=== PATIENT | female | born 1950 | race Caucasian/White ===

== ENCOUNTER 2020-12-13 12:44 | Emergency (ER) | payer MEDICARE, OTHER, SELFPAY ==
[2020-12-13 12:45] VITALS: BP 165/90; PULSE 115; RESP 16; TEMP 35.8; O2SAT 92; BMI 32.5
--- NOTE | 2020-12-13 13:08 | EDS_ITS ---
HPI History of Present Illness Chief Complaint: Lower Extremity Injury Detail of Chief Complaint: Patient presents with injury to her right second toe Informant: patient Narrative Narrative: Patient presents to the emergency department with an injury to her right second toe that occurred on November 21. Patient states that she got the toe caught in the cord of a purse and twisted the toe. Patient did not seek medical attention because she did not think there was much we could do for toes but she continues to have pain and swelling. Patient also has a history of peripheral artery disease and was not sure if continued pain was related to that. [facility] Medical History (Updated 12/13/20 @ 14:[address] Rodney Collins, DO) Hypertension Peripheral arterial disease Home Medications meclizine 25 mg PO 4X/DAY PRN PRN #20 tab 02/07/16 [Rx Last Taken Unknown] trazodone 200 mg PO QHS PRN 02/07/16 [History Last Taken Unknown] albuterol sulfate 2 puff INHALATION Q4H PRN PRN 12/13/20 [History Last Taken Unknown] cilostazol 100 mg PO BID 12/13/20 [History Last Taken Unknown] clopidogrel 75 mg PO DAILY 12/13/20 [History Last Taken Unknown] hydrocodone-acetaminophen 1 tab PO Q4H PRN PRN 2 Days #10 tablet 12/13/20 [Rx Last Taken Unknown] metoprolol tartrate 25 mg PO BID 12/13/20 [History Last Taken Unknown] Allergy/AdvReac Type Severity Reaction Status Date / Time cephalexin [From Keflex] Allergy Rash Verified 12/13/20 12:44 ciprofloxacin [From Cipro] Allergy Rash Verified 12/13/20 12:44 Penicillins Allergy Rash Verified 12/13/20 12:44 Sulfa (Sulfonamide Allergy Rash Verified 12/13/20 12:44 Antibiotics) Social History Smoking Status: Never smoker [facility] ED Constitutional Constitutional ED: Reports systems reviewed and no addt'l complaints, except as documented; Denies body ache(s), change in weight or chills Eyes Eyes: Denies acute decrease in peripheral vision, change in vision, double vision or loss of vision ENT ENT ED: Reports none; Denies ear pain, lip swelling, loss taste/smell, neck pain, otalgia or sore throat Cardiovascular Cardiovascular: Reports none; Denies abdominal pain, chest pain with activity, leg edema, lightheadedness, palpitations, rapid heart rate or syncope Respiratory/Chest Respiratory/Chest: Reports none; Denies change in mental status, dry cough, dyspnea, hemoptysis, shortness of breath at rest or shortness of breath with exertion Gastrointestinal Gastrointestinal: Reports none; Denies abdominal pain, change in stool character, diarrhea, hematemesis, hematochezia, melena, rectal bleeding or vomiting Genitourinary Genitourinary ED: Reports none; Denies abdominal discomfort, anuria, dysuria, genital pain or polyuria Musculoskeletal Musculoskeletal: Reports none and other Details: Right second toe pain ; Denies arthralgias, back pain, difficulty walking, extremity pain, muscle weakness or myalgias Integumentary Reports none; Denies abscess or rash Neurologic Neurologic: Reports none; Denies abnormal gait, confusion, focal weakness, frequent falls, headache(s), loss of vision, numbness, paresthesias, radicular pain, vertigo or weakness Psychiatric Psychiatric: Reports systems reviewed and no addt'l complaints, except as documented and none; Denies behavioral changes, confusion, difficulty concentrating, hallucinations, suicidal ideation, tactile hallucinations or visual hallucinations Endocrine Endocrinology: Denies none, cold intolerance, excessive sweating, fatigue or heat intolerance Hematologic/Lymphatic Hematologic/Lymphatic: Reports none; Denies anemia, easy bleeding or easy bruising Allergic/Immunologic Allergic/Immunologic ED: Denies as per HPI, none, lip swelling, mouth swelling, throat swelling, tongue swelling or hives EXAM Physical Exam Const Vital Signs: 12/13/20 12:45 Temperature 96.5 F L Temperature Source Temporal Pulse Rate 115 H Respiratory Rate 16 Blood Pressure 165/90 H Blood Pressure Mean 115 Pulse Ox 92 Oxygen Delivery Method Room Air Positive well nourished and well developed General Appearance ED: well developed and NAD HEENT Reports TM's clear and moist mucous membranes normocephalic and atraumatic; Negative for trauma or tenderness Tympanic Membrane ED: Yes TM's clear Eyes PERRL and EOMs intact bilaterally General Eye ED: Negative for pale conjunctiva or scleral icterus Neck no lymphadenopathy, supple and no JVD General: Negative for tenderness Chest Wall inspection of chest normal and palpation of chest normal Chest: Negative for tenderness Resp normal respiratory effort and clear to auscultation bilaterally Effort and Inspection: Negative for respiratory distress or pain with movement Auscultation: Negative for rhonchi, wheezes or diminished lung sounds Cardio regular rate, regular rhythm, S1 normal heart sound, S2 normal heart sound and no murmurs Peripheral Pulses: pulses 2+ throughout GI normal to inspection, nondistended, normoactive bowel sounds, soft to palpation, non-tender, non-distended and no masses Back/Spine no CVA tenderness and no thoracic nor lumbar tenderness Extremity normal to inspection Extremity Narrative: Valuation of the second toe reveals soft tissue swelling over the proximal phalanx with tenderness to palpation. No significant rotational deformity noted. Patient has normal dorsal pedal and posterior tibial pulses. Normal cap refill. General Extremety ED: Negative for edema General Extremity: Negative for edema Neuro oriented x3, CN's II-XII intact bilaterally, no sensory deficits noted and gait normal Sensorium / Orientation: awake, alert, oriented to person, oriented to place and oriented to time Motor Exam: strength 5/5 throughout and strength abnormal Psych mental status grossly normal Skin no rashes or lesions noted and no wounds MDM MDM MDM Narrative Medical decision making narrative: Patient has a fracture of the proximal phalanx of the second toe and she will have the toes brendan taped and will be given a postop shoe. Patient will be referred to podiatry for follow-up within the next 5 to 7 days. Radiography Diagnostic Testing: Radiology Impression Foot X-Ray 12/13/20 13:20 IMPRESSION: Fracture of the second proximal phalanx. Posterior calcaneal enthesophyte. Electronically Signed: Aftab Madera MD at 13:51 EDT Tel , Service support , Three-view x-rays of the right foot obtained showed a comminuted fracture of the head of the proximal phalanx of the second toe as interpreted by myself. Official radiology report pending. Discharge Plan Triage Chief Complaint: Lower Extremity Injury ED Provider: Rodney Collins Dx/Rx/DC Orders Clinical Impression: Fracture of toe Instructions: ED Fracture, Toe, Closed Prescriptions: New hydrocodone-acetaminophen [hydrocodone-acetaminophen] 1 TABLET tablet 1 tab PO Q4H PRN PRN (Reason: Pain) 2 Days Qty: 10 RF: 0 No Action trazodone 100 MG tablet 200 mg PO QHS PRN (Reason: Sleep) RF: 0 meclizine 25 MG tablet 25 mg PO 4X/DAY PRN PRN (Reason: Dizziness) Qty: 20 RF: 0 cilostazol 100 mg tablet 100 mg PO BID RF: 0 clopidogrel 75 mg tablet 75 mg PO DAILY RF: 0 albuterol sulfate 90 mcg/actuation HFA aerosol inhaler 2 puff INHALATION Q4H PRN PRN (Reason: Shortness Of Breath Or Wheezing) RF: 0 metoprolol tartrate 25 mg tablet 25 mg PO BID RF: 0 Primary Care Provider: Domo Adhikari Referrals: Domo Adhikari DO [Primary Care Provider] - Dave Winston DPM [STAFF PHYSICIAN] - 5-7 Days Disposition Disposition: Home, Self Care
--- NOTE | 2020-12-13 13:20 | RAD_ITS ---
STUDY: X-RAY - RIGHT FOOT CLINICAL: Right great toe pain, toe injury 11/21/2020. TECHNIQUE: 3 view(s) of the foot. COMPARISON: None. FINDINGS: There is a posterior calcaneal enthesophyte. Otherwise, unremarkable talus, calcaneus, and tarsal bones. Normal visualized subtalar, talonavicular, calcaneocuboid, tarsal and tarsometatarsal articulations. Normal metatarsi. Normal metatarsophalangeal joint of the great toe. Normal tibial and fibular sesamoid bones. Normal interphalangeal joint of the great toe. Normal phalanges of the great toe. Normal second through fifth metatarsophalangeal joints. There is a mildly displaced mildly comminuted intra-articular fracture of the head of the second proximal phalanx. The soft tissue structures are unremarkable. RAD/Foot min 3 Views IMPRESSION: Fracture of the second proximal phalanx. Posterior calcaneal enthesophyte. Electronically Signed: Aftab Madera MD at 13:51 EDT Tel , Service support ,
== END 2020-12-13 14:23 | disposition home or self-care (01) ==
PROVIDERS: Emergency Provider Emergency Medicine; PCP Family Medicine
DX: S92.911A Unspecified fracture of right toe(s), initial encounter for closed fracture (principal); I10 Essential (primary) hypertension; X58.XXXA Exposure to other specified factors, initial encounter; Z79.899 Other long term (current) drug therapy
CPT/HCPCS: 73630; 99283

== ENCOUNTER 2021-02-27 10:02 | Emergency (ER) | payer MEDICARE, OTHER, SELFPAY ==
[2021-02-27 10:04] VITALS: BP 130/74; PULSE 18; RESP 18; TEMP 37; O2SAT 93; BMI 32.2
--- NOTE | 2021-02-27 10:13 | ED.RN ---
oral cavity assessed. no swelling noted to the uvula or posterior pharyngeal wall. oxygen noted at 93. patient in no respiratory distress.
--- NOTE | 2021-02-27 11:38 | EX.ED.DYSGE1 ---
HPI History of Present Illness Chief Complaint: Edema Narrative Narrative: Patient presenting with right-sided jaw pain. She states that her face was swollen before she got here however this is resolved. Patient states she called her primary care physician who told her to come to the emergency room. Patient states she has been fatigued but denies chills or fevers. Patient states that she is having difficulty swallowing at home due to the pain but now is not having the symptoms. Patient complains of headache intermittently for about a week. She denies neck pain. She denies a cough. [facility] Medical History Hypertension Peripheral arterial disease Home Medications trazodone 300 mg PO QHS PRN 02/07/16 [History Last Taken Unknown] cilostazol 100 mg PO BID 12/13/20 [History Last Taken Unknown] metoprolol tartrate 25 mg PO BID 12/13/20 [History Last Taken Unknown] clarithromycin 500 mg PO Q12H 7 Days #14 tab 02/27/21 [Rx Last Taken Unknown] Allergy/AdvReac Type Severity Reaction Status Date / Time cephalexin [From Keflex] Allergy Rash Verified 02/27/21 10:07 ciprofloxacin [From Cipro] Allergy Rash Verified 02/27/21 10:07 Penicillins Allergy Rash Verified 02/27/21 10:07 Sulfa (Sulfonamide Allergy Rash Verified 02/27/21 10:07 Antibiotics) Surgical History History of carpal tunnel release History of hysterectomy History of partial colectomy Social History Smoking Status: Never smoker ROS ROS ED Constitutional Constitutional ED: Denies chills or fever(s) Eyes Eyes: Denies blurry vision or diplopia ENT ENT ED: Reports sore throat; Denies rhinorrhea Cardiovascular Cardiovascular: Denies chest pain or palpitations Respiratory/Chest Respiratory/Chest: Denies cough or dyspnea Gastrointestinal Gastrointestinal: Denies abdominal pain, constipation, diarrhea, nausea or vomiting Genitourinary Genitourinary ED: Denies dysuria or hematuria Musculoskeletal Musculoskeletal: Denies arthralgias or myalgias Integumentary Denies Abrasions or rash Neurologic Neurologic: Reports headache(s); Denies paresthesias EXAM Physical Exam Const Vital Signs: 02/27/21 10:04 02/27/21 11:10 Temperature 98.6 F Temperature Source Temporal Pulse Rate 18 L Respiratory Rate 18 Respiratory Effort Normal Respiratory Pattern Normal Blood Pressure 130/74 H Blood Pressure Mean 92 Pulse Ox 93 Oxygen Delivery Method Room Air Positive well nourished General Appearance ED: NAD HEENT Reports moist mucous membranes HEENT Narrative: I do not appreciate any facial swelling on the right side. Oropharynx is patent without stridor. Tongue is normal. No sublingual edema. trauma Eyes PERRL and EOMs intact bilaterally Neck no lymphadenopathy and supple Resp normal respiratory effort and clear to auscultation bilaterally Cardio regular rate and regular rhythm Neuro oriented x3 and CN's II-XII intact bilaterally Sensorium / Orientation: alert Psych mental status grossly normal Skin no rashes or lesions noted MDM MDM MDM Narrative Medical decision making narrative: Patient's exam is normal. I do not appreciate any facial swelling. Her HEENT exam is otherwise normal. She states to me that her ears were hurting in her bilateral TMs are normal. Oropharynx is patent without stridor, erythema, exudates. Where she is pointing to an area of pain is where her parotid gland is is possible this could have been swollen before she got here and have resolved. Patient states that she normally would get an antibiotic for this. After discussion she states she would normally take Biaxin. She has antibiotic allergies to sulfa, penicillin, Cipro, Keflex. I counseled her that I did not feel she needed antibiotics however she was persistent. I did give her a [id number] prescription that she can use if he has any worsening symptoms. Impression: 1. Right jaw Pain Discharge Plan Triage Chief Complaint: Edema ED Provider: Matt Pedroza Dx/Rx/DC Orders Instructions: ED Pharyngitis, Viral Prescriptions: New clarithromycin 500 mg tablet 500 mg PO Q12H 7 Days Qty: 14 RF: 0 No Action trazodone 100 MG tablet 300 mg PO QHS PRN (Reason: Sleep) RF: 0 cilostazol 100 mg tablet 100 mg PO BID RF: 0 metoprolol tartrate 25 mg tablet 25 mg PO BID RF: 0 Primary Care Provider: Domo Adhikari Referrals: Domo Adhikari DO [Primary Care Provider] - Baldemar Velasco MD [STAFF PHYSICIAN] - As Needed Disposition Disposition: Home, Self Care Discharge Date/Time: 02/27/21 11:41
[2021-02-27 11:40] VITALS: RESP 15
== END 2021-02-27 11:41 | disposition home or self-care (01) ==
LOC: ED 11:19
PROVIDERS: Emergency Provider Student in an Organized Health Care Education/Training Program; PCP Family Medicine
DX: R68.84 Jaw pain (principal); J02.8 Acute pharyngitis due to other specified organisms; I10 Essential (primary) hypertension; I73.9 Peripheral vascular disease, unspecified; Z79.899 Other long term (current) drug therapy
CPT/HCPCS: 99282

== ENCOUNTER 2021-06-19 15:45 | Outpatient (CLI) | payer MEDICARE, OTHER, SELFPAY | END 2021-06-19 23:59 | disposition short-term general hospital (02) | LOC: LABSPEC 15:46 | PROVIDERS: PCP Family Medicine; Referring Provider Physician Assistant Surgical; Visit Provider Physician Assistant Surgical | DX: U07.1 COVID-19 (principal) | CPT/HCPCS: 87635; U0003; U0005 ==

== ENCOUNTER 2021-06-27 10:26 | Emergency (ER) | payer MEDICARE, OTHER, SELFPAY ==
[2021-06-27] VITALS (8 sets, daily range): BP systolic 100–123; BP diastolic 71–86; PULSE 72–111; RESP 14–22; TEMP 36.3–37.4; O2SAT 88–96; BMI 25.0
--- NOTE | 2021-06-27 10:32 | EKG12_ITS ---
Test Reason : SOB Blood Pressure : / mmHG Vent. Rate : 106 BPM Atrial Rate : 106 BPM P-R Int : 128 ms QRS Dur : 092 ms QT Int : 350 ms P-R-T Axes : 038 -05 056 degrees QTc Int : 464 ms Sinus tachycardia Low voltage QRS Borderline ECG Confirmed by GHASSAN SANTIAGO, REGINA ([id number]), videotape editor ALEJANDRINA FIORE ([id number]) on 06/28/2021 1:38:32 PM Referred By: PRO Confirmed By:RACHANA FERRELL MD
--- NOTE | 2021-06-27 11:18 | RAD_ITS ---
STUDY: X-RAY CHEST REASON FOR EXAM: Female, 70 years old. covid TECHNIQUE: AP COMPARISON: None. FINDINGS: EKG leads project over the chest. Coarsened interstitial lung markings but no airspace consolidation. There is no demonstrated pleural abnormality. Normal size heart. Sternal wires and mediastinal surgical clips compatible with prior CABG. Normal visualized pulmonary arteries. Normal visualized aortic arch and descending thoracic aorta. Normal visualized thoracic spine. Normal visualized ribs, clavicles, and shoulders. There is no demonstrated abnormality of the visualized soft tissue structures of the upper abdomen. RAD/Chest 1 View (Portable) IMPRESSION: No airspace consolidation or pleural effusion. Electronically Signed: Alexander Zuleta MD ([place]) at 11:30 EST , Service support ,
[2021-06-27 11:21] LABS: Absolute Lymphocyte Count 1.22 X10^3/uL (0.83-4.51); Absolute Neutrophil Count 2.2 X10^3/uL (2.0-7.7); Basophil# 0.02 X10^3/uL; Basophil% 0.5 % (0-1); Eosinophil# 0.01 X10^3/uL; Eosinophils% 0.3 % (0-5); Hematocrit 46.9 % (37-47); Hemoglobin 16.1 g/dL (12.0-15.0); Lymphocyte # 1.22 X10^3/ul (0.83-4.51); Lymphocyte % 31.8 % (19-41); Mean Corp Hgb Conc 34.3 g/dL (32-36); Mean Corpuscular Hgb 30.9 pg (27.0-32.0); Mean Platelet Vol. 9.1 fl (6.2-12.0); Monocyte# 0.37 X10^3/uL; Monocyte% 9.6 % (0-10); NRBC Flagged by Analyzer 0 % (0-5); Neutrophil # 2.18 X10^3/uL (2.7-7.7); Neutrophil % 56.8 % (47-70); POSITIVE COUNT YES; POSITIVE MORPHOLOGY YES; Platelet Count 228 K/mm3 (150-450); RBC Distribution Width CV 12.8 % (11.6-14.6); RBC Distribution Width SD 42.1 fl (35.1-43.9); Red Blood Count 5.21 M/mm3 (4.2-5.4); White Blood Count 3.8 K/mm3 (4.4-11.0)
[2021-06-27 11:31] LABS: Anion Gap 11 (5-15); BUN 21 mg/dL (7-18); BUN/Creat Ratio 16.8 RATIO (10-20); Calcium,Total 8.6 mg/dL (8.5-10.1); Chloride 104 mmol/L (98-107); Creatinine, Serum 1.25 mg/dL (0.55-1.02); EST Glomerular Filtration Rate 45 mL/min (>60); Est Glom Filt Rate - Afr Amer 54 mL/min (>60); Estimated Creatinine Clearance 36.61 ml/min; Glucose 143 mg/dL (74-106); Potassium 3.2 mmol/L (3.5-5.1); Sodium Level 137 mmol/L (136-145)
--- NOTE | 2021-06-27 12:38 | EX.ED.VIS.UR ---
HPI HPI - URI History of Present Illness Chief Complaint: Shortness of Breath Informant: patient Onset/Context/Timing Onset: Days Context: Gradual Onset Timing: Continuous Current Severity: Mild Maximum Severity: Mild Narrative Narrative: 70-year-old female history of prior PR, triple bypass, diabetes and hypertension. Patient was diagnosed positive for COVID on 06/16/2021. She has been generally weak. Fell complaining of right hip pain. She has had a prior hip replacement. She denied any head injury. She has had recently nausea vomiting and diarrhea and also fever but states that she thinks that is all improving. She has been coughing also. Prior similar symptoms: No Recent Illness/Hospitalization: No ROS ROS ED ROS Narrative Improving and resolving cough with nausea, vomiting diarrhea. Resolving fever and chills. COVID-positive 11 days ago. Review of Systems ROS Unobtainable: Denies due to encephalopathy Constitutional Constitutional ED: Reports chills, fever(s) and subjective Eyes Eyes: Denies change in vision ENT ENT ED: Denies ear pain or rhinorrhea Cardiovascular Cardiovascular: Denies chest pain Respiratory/Chest Respiratory/Chest: Reports cough and dyspnea Gastrointestinal Gastrointestinal: Reports diarrhea, nausea and vomiting; Denies abdominal pain or constipation Genitourinary Genitourinary ED: Denies dysuria Musculoskeletal Musculoskeletal: Reports myalgias Integumentary Denies rash Neurologic Neurologic: Denies headache(s) Psychiatric Psychiatric: Denies depression Endocrine Endocrinology: Denies polyuria Hematologic/Lymphatic Hematologic/Lymphatic: Denies easy bruising Allergic/Immunologic Allergic/Immunologic ED: Denies urticaria [facility] Medical History Hypertension Peripheral arterial disease Home Medications trazodone 300 mg PO QHS PRN 02/07/16 [History Last Taken Unknown] cilostazol 100 mg PO BID 12/13/20 [History Last Taken Unknown] metoprolol tartrate 25 mg PO BID 12/13/20 [History Last Taken Unknown] clarithromycin 500 mg PO Q12H 7 Days #14 tab 02/27/21 [Rx Last Taken Unknown] dexamethasone [Decadron] 6 mg PO DAILY 7 Days #7 tab 06/27/21 [Rx Last Taken Unknown] Allergy/AdvReac Type Severity Reaction Status Date / Time cephalexin [From Keflex] Allergy Rash Verified 06/27/21 10:27 ciprofloxacin [From Cipro] Allergy Rash Verified 06/27/21 10:27 Penicillins Allergy Rash Verified 06/27/21 10:27 Sulfa (Sulfonamide Allergy Rash Verified 06/27/21 10:27 Antibiotics) Surgical History History of carpal tunnel release History of hysterectomy History of partial colectomy Social History Smoking Status: Never smoker EXAM Physical Exam Narrative Exam Narrative: 30-year-old female. Vital signs are stable except for pulse ox of 88% on room air consistent with hypoxia. On 4 L of oxygen she is 93%. H EENT exam unremarkable atraumatic. Neck nontender. Trachea midline. Lungs clear to auscultation bilaterally. Heart regular rhythm rate about 95 no murmur. Chest nontender. Abdomen soft nontender. Moving all 4 extremities. Mild right hip tenderness. No shortening or rotation. Flexion extension intact. Dorsi plantar flexion intact. 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 Back nontender. Neurologically she is awake and alert with no focal motor deficits. There is no shortening or rotation of either hip. Const Vital Signs: 06/27/21 10:27 06/27/21 10:53 06/27/21 11:28 Temperature 98.6 F 98.9 F Temperature Source Temporal Temporal Pulse Rate 111 H 97 97 Respiratory Rate 22 H 18 18 Respiratory Effort Short of Breath Respiratory Depth Shallow Respiratory Pattern Normal Blood Pressure 120/86 H 123/79 H 100/72 Blood Pressure Mean 97 93 81 Pulse Ox 88 94 89 Oxygen Delivery Method Room Air Nasal Cannula Nasal Cannula Oxygen Flow Rate (L/min) 2 2 06/27/21 12:21 06/27/21 13:00 06/27/21 14:11 Temperature 98.9 F 98.4 F 99.4 F H Temperature Source Temporal Temporal Temporal Pulse Rate 91 99 98 Respiratory Rate 18 18 14 Respiratory Effort Respiratory Depth Respiratory Pattern Blood Pressure 112/71 112/79 108/86 H Blood Pressure Mean 84 90 93 Pulse Ox 93 96 93 Oxygen Delivery Method Nasal Cannula Nasal Cannula Nasal Cannula Oxygen Flow Rate (L/min) 4 4 4 06/27/21 15:05 Temperature 98.9 F Temperature Source Temporal Pulse Rate 72 Respiratory Rate 16 Respiratory Effort Respiratory Depth Respiratory Pattern Blood Pressure 114/72 Blood Pressure Mean 86 Pulse Ox 93 Oxygen Delivery Method Nasal Cannula Oxygen Flow Rate (L/min) 4 Positive well nourished and well developed; Negative for obese, cachectic or contractures General Appearance ED: well developed and NAD; Negative for cachectic, contractures, cyanotic, diaphoretic or pallor Nutritional Appearance: Negative for cachectic or obese HEENT Reports moist mucous membranes normocephalic; Negative for atraumatic External Ear: external ears normal Eyes PERRL and EOMs intact bilaterally General Eye ED: Negative for pale conjunctiva or scleral icterus Neck no lymphadenopathy, supple, no meningeal signs and no JVD General: Negative for anterior neck swelling or lymphadenopathy Resp normal respiratory effort and clear to auscultation bilaterally Auscultation: Negative for rales, rhonchi or wheezes Cardio S1 normal heart sound, S2 normal heart sound and no murmurs Rate: regular rate Rhythm: regular rhythm GI non-tender, non-distended and no masses Inspection: Negative for abdominal distention Auscultation: normoactive bowel sounds Palpation: soft; Negative for tender or guarding Back/Spine no CVA tenderness and normal ROM General Back: Negative for CVA tenderness Cervical Spine: Negative for cervical spine tenderness Thoracic Spine / Upper Back: Negative for thoracic spinal tenderness Extremity normal to inspection and full ROM Extremity Narrative: Mild tenderness right hip. No shortening or rotation. General Extremety ED: Yes tenderness; Negative for cyanosis General Extremity: Negative for cyanosis Neuro oriented x3 Sensorium / Orientation: alert, oriented to person, oriented to place and oriented to time; Negative for orientation impaired, lethargic or stuporous Motor Exam: strength 5/5 throughout; Negative for general weakness Psych mental status grossly normal Attitude: No agitated Mood & Affect: Negative for depressed or tearful Skin General Skin Exam: Negative for jaundice or pallor Lesions: no lesions Rashes: no rashes MDM MDM MDM Narrative Medical decision making narrative: 70-year-old female who is COVID-positive 11 days ago. Symptoms are improving but she had weakness and a fall and also complaining of right hip pain. She has some mild tenderness of the hip there is no gross deformity. X-rays and screening labs will be obtained. Repeat exam patient is doing well at 3:37 PM. We went over all of her test. She will be discharged home. Patient is doing well. Says she does not feel short of breath. She has some underlying lung disease. She may be chronically hypoxic. She did not want home O2. She will be started on Decadron daily. Patient and follow-up with her primary care physician. Return if worse. Lab Data Attestation: I reviewed the patient's lab results. Lab results narrative: CBC shows a white count 3.8. Hemoglobin 16. Electrolytes show potassium 3.2 gap 11 BUN 21 creatinine 1.25 glucose 143. Chest x-ray shows chronic changes cannot rule out a left pleural effusion. Interpreted by myself and radiologist. D-dimer elevated but the CTA of the chest showed no PE as read by the radiologist and reviewed by me. Findings consistent with chronic underlying lung disease. Labs: Laboratory Results - last 24 hr 06/27/21 06/27/21 06/27/21 11:07 11:07 13:00 WBC 3.8 L RBC 5.21 Hgb 16.1 H Hct 46.9 MCV 90.0 MCH 30.9 MCHC 34.3 RDW Std Deviation 42.1 RDW Coeff of Pelon 12.8 Plt Count 228 MPV 9.1 Immature Gran % (Auto) 1.000 H Neut % (Auto) 56.8 Lymph % (Auto) 31.8 [place]ardo % (Auto) 9.6 Eos % (Auto) 0.3 Baso % (Auto) 0.5 Absolute Neuts (auto) 2.2 Absolute Lymphs (auto) 1.22 Nucleated RBC % 0 D-Dimer Quant (PE/DVT) Cancelled Sodium 137 Potassium 3.2 L Chloride 104 Carbon Dioxide 22.0 Anion Gap 11 BUN 21 H Creatinine 1.25 H Estim Creat Clear Calc 36.61 Est GFR (MDRD) Af Amer 54 L Est GFR (MDRD) Non-Af 45 L BUN/Creatinine Ratio 16.8 Glucose 143 H Calcium 8.6 06/27/21 13:50 WBC RBC Hgb Hct MCV MCH MCHC RDW Std Deviation RDW Coeff of Pelon Plt Count MPV Immature Gran % (Auto) Neut % (Auto) Lymph % (Auto) [place]ardo % (Auto) Eos % (Auto) Baso % (Auto) Absolute Neuts (auto) Absolute Lymphs (auto) Nucleated RBC % D-Dimer Quant (PE/DVT) 1.34 H* Sodium Potassium Chloride Carbon Dioxide Anion Gap BUN Creatinine Estim Creat Clear Calc Est GFR (MDRD) Af Amer Est GFR (MDRD) Non-Af BUN/Creatinine Ratio Glucose Calcium Radiography Diagnostic Testing: Clinical Impression(s) from Imaging Studies Chest X-Ray 06/27/21 11:18 IMPRESSION: No airspace consolidation or pleural effusion. Electronically Signed: Alexander Zuleta MD ([place]) at 11:30 EST , Service support , Hip/Pelvis X-Ray 06/27/21 12:45 IMPRESSION: Status post right total hip replacement. No fracture or dislocation. Moderate degree of osteoarthritis involving the left hip joint. Electronically Signed: August Maloney MD at 13:06 EST , Service support , Chest CTA 06/27/21 14:42 IMPRESSION: Findings suggestive of chronic interstitial fibrosis. No pulmonary infiltration is seen. Electronically Signed: August Maloney MD at 15:21 EST , Service support , Chest x-ray, portable, single view interpreted by myself and radiology shows chronic changes cannot rule out a left pleural effusion. Rhythm Strip Rhythm Strip: Sinus Tach Rate: 106 Ectopy: None EKG Initial EKG: Attestation: I personally reviewed and interpreted this EKG as follows: Interpretation: Sinus Rhythm, No Acute Injury Pattern and Sinus Tachycardia Comments: Sinus tachycardia rate of 106 no acute signs of PR or ischemia. Discharge Plan Triage Chief Complaint: Shortness of Breath ED Provider: Tyler Roberts Dx/Rx/DC Orders Clinical Impression: COVID-19, Chronic interstitial lung disease Instructions: Human Coronaviruses Prescriptions: New dexamethasone [Decadron] 6 mg tablet 6 mg PO DAILY 7 Days Qty: 7 RF: 0 No Action trazodone 100 MG tablet 300 mg PO QHS PRN (Reason: Sleep) RF: 0 cilostazol 100 mg tablet 100 mg PO BID RF: 0 metoprolol tartrate 25 mg tablet 25 mg PO BID RF: 0 clarithromycin 500 mg tablet 500 mg PO Q12H 7 Days Qty: 14 RF: 0 Primary Care Provider: Domo Adhikari Referrals: Domo Adhikari DO [Primary Care Provider] - 3-5 Days if not improving Activity Restrictions/Additional Instructions: Plenty of fluids and rest. Daily Decadron to help you with the breathing. This is a steroid to decrease inflammation in your lungs. Return if feeling worse. Follow-up with your doctor make sure you are improving. Disposition Disposition: Home, Self Care
--- NOTE | 2021-06-27 12:45 | RAD_ITS ---
STUDY: X-RAY - PELVIS AND RIGHT HIP REASON FOR EXAM: Female, 70 years old. Pain following a fall. TECHNIQUE: 3 views of the pelvis and hip. COMPARISON: None. FINDINGS: There is a non-specific bowel gas pattern. There are multiple calcified phleboliths. There is narrowing with cortical sclerosis and osteophyte formation of the sacroiliac joint consistent with degenerative osteoarthritic changes. Normal bilateral superior and inferior pubic rami. There is narrowing with sclerosis of the pubic symphysis. Normal bilateral ischial tuberosities. The patient is status post right total hip replacement. There is good alignment. No significant abnormality is seen. Moderate degree of osteoarthritis of the left hip joint. RAD/HIP, UNI W/ Pelvis 2-3 Views IMPRESSION: Status post right total hip replacement. No fracture or dislocation. Moderate degree of osteoarthritis involving the left hip joint. Electronically Signed: August Maloney MD at 13:06 EST , Service support ,
--- NOTE | 2021-06-27 13:14 | NURSING ---
BLUE TOP HEMOLIZED
[2021-06-27 14:25] LABS: D-Dimer Quantitative (DVT/PE) 1.34 FEU/ug/m (0.27-0.49)
--- NOTE | 2021-06-27 14:42 | CT_ITS ---
STUDY: CTA CHEST REASON FOR EXAM: Female, 70 years old. hypoxic. Elevated d-dimer. Covid. RADIATION DOSAGE (If Supplied By Facility): CTDIvol = ( 13.205 ) mGy, DLP = ( 418.50 ) mGycm TECHNIQUE: The examination was performed with the intravenous administration of IV 100mL Isovue-370. Post-processing of the angiographic images was performed, with multiplanar reformation and 3D reconstruction. Individualized dose optimization techniques were used for this CT. COMPARISON: Comparison is made with prior chest radiograph done earlier in the day. FINDINGS: Normal enhancement of the main pulmonary artery and right and left pulmonary arteries. Normal enhancement of the bilateral peripheral pulmonary arteries. There is no demonstrated pulmonary embolism. There is atherosclerotic calcification of the aortic arch with tortuosity. There is no demonstrated aortic dissection. Sternal cerclage wires and vascular clips are present from a prior sternotomy and coronary artery bypass graft procedure (CABG). Coronary artery calcification. There are visualized mediastinal lymph nodes, which are within normal size limits, and with normal morphology. Normal hilar regions. Normal visualized trachea and bronchi. The lungs are well expanded. There is diffuse increased interstitial markings in both lungs more prominent at the lung bases with a subpleural cystic changes at the right lung base suggestive of chronic interstitial fibrosis. Normal pleura. Normal chest wall structures. There are degenerative changes of thoracic spine. Diffuse fatty infiltration of the liver. CT/CTA Chest W/WO Contrast IMPRESSION: Findings suggestive of chronic interstitial fibrosis. No pulmonary infiltration is seen. Electronically Signed: August Maloney MD at 15:21 EST , Service support ,
[2021-06-27] MEDS: dexAMETHasone 4 MG Tablet 6 MG PO (15:55)
== END 2021-06-27 15:59 | disposition home or self-care (01) ==
PROVIDERS: Emergency Provider Emergency Medicine; PCP Family Medicine; Visit Provider Emergency Medicine
DX: U07.1 COVID-19 (principal); E11.51 Type 2 diabetes mellitus with diabetic peripheral angiopathy without gangrene; J84.9 Interstitial pulmonary disease, unspecified; M25.551 Pain in right hip; I10 Essential (primary) hypertension; I25.2 Old myocardial infarction; Z95.1 Presence of aortocoronary bypass graft; Z79.899 Other long term (current) drug therapy
CPT/HCPCS: 71045; 71275; 73502; 80048; 85025; 85379; 93005; 99285; Q9967; A4216

== ENCOUNTER 2021-08-16 08:46 | Emergency (ER) | payer MEDICARE, OTHER, SELFPAY ==
[2021-08-16 08:47] VITALS: BP 127/80; PULSE 115; RESP 16; TEMP 36.6; O2SAT 92; BMI 25.7
[2021-08-16 09:33] LABS: Absolute Lymphocyte Count 2.07 X10^3/uL (0.83-4.51); Absolute Neutrophil Count 4.3 X10^3/uL (2.0-7.7); Basophil# 0.04 X10^3/uL; Basophil% 0.5 % (0-1); Eosinophil# 0.35 X10^3/uL; Eosinophils% 4.7 % (0-5); Hematocrit 39.8 % (37-47); Lymphocyte # 2.07 X10^3/ul (0.83-4.51); Lymphocyte % 28.1 % (19-41); Mean Corp Hgb Conc 32.7 g/dL (32-36); Mean Corpuscular Hgb 31.5 pg (27.0-32.0); Mean Corpuscular Volume 96.4 fL (81-99); Mean Platelet Vol. 8.6 fl (6.2-12.0); Monocyte# 0.57 X10^3/uL; Monocyte% 7.7 % (0-10); NRBC Flagged by Analyzer 0 % (0-5); Neutrophil # 4.32 X10^3/uL (2.7-7.7); Neutrophil % 58.7 % (47-70); Platelet Count 359 K/mm3 (150-450); RBC Distribution Width CV 14.3 % (11.6-14.6); RBC Distribution Width SD 50.3 fl (35.1-43.9); Red Blood Count 4.13 M/mm3 (4.2-5.4); White Blood Count 7.4 K/mm3 (4.4-11.0)
[2021-08-16 09:38] LABS: Prothrombin Time (Protime)PT. 12.1 SECONDS (11.7-14.9)
[2021-08-16 09:46] LABS: ALB/GLOB Ratio 0.6 RATIO (0.9-2.4); AST(SGOT) 15 U/L (15-37); Alanine Aminotransfer ALT/SGPT 17 U/L (13-56); Albumin, Serum 2.6 g/dL (3.2-5.0); Alkaline Phosphatase 72 U/L (45-117); Anion Gap 5 (5-15); BUN 14 mg/dL (7-18); BUN/Creat Ratio 14.8 RATIO (10-20); Calcium,Total 9.4 mg/dL (8.5-10.1); Chloride 104 mmol/L (98-107); Creatinine, Serum 0.94 mg/dL (0.55-1.02); EST Glomerular Filtration Rate 62 mL/min (>60); Est Glom Filt Rate - Afr Amer 75 mL/min (>60); Estimated Creatinine Clearance 48.68 ml/min; Globulin 4.5 g/dL (2.2-4.2); Glucose 143 mg/dL (74-106); Potassium 3.6 mmol/L (3.5-5.1); Protein, Total 7.1 g/dL (6.4-8.2); Sodium Level 138 mmol/L (136-145)
--- NOTE | 2021-08-16 10:01 | CT_ITS ---
STUDY: CT ABDOMEN AND PELVIS WITH CONTRAST REASON FOR EXAM: Female, 70 years old. Abdominal pain RADIATION DOSAGE (If Supplied By Facility): CTDIvol = ( 17.85 ) mGy, DLP = ( 985.33 ) mGycm TECHNIQUE: Transaxial images were obtained from the dome of the diaphragm to the symphysis pubis without oral contrast. 100ML OF ISOVUE 300 was administered. Sagittal and coronal images were reconstructed. Individualized dose optimization techniques were used for this CT. COMPARISON: None. FINDINGS: Mild increased markings in the lingular segment of the left upper lobe suggestive of scarring and/or atelectasis. Prior CABG. Coronary artery calcification. There is decreased attenuation of the liver consistent with steatosis. 7 mm cyst is seen in the left lobe of the liver. The patient is status post cholecystectomy. Normal spleen. Normal pancreas. There is a small, circumscribed, smooth, low attenuation left adrenal mass, consistent with an adrenal adenoma. It measures 1.2 cm. Normal right adrenal gland. Normal right kidney. Normal left kidney. Normal visualized stomach. Normal small intestine. There are scattered colonic diverticula consistent with diverticulosis. The appendix is visualized and appears normal. There is diffuse atherosclerotic calcification of the abdominal aorta and its major visceral branches. There is a fusiform infrarenal abdominal aortic aneurysm with a transverse dimension of 3.9 cm. There is evidence of mural thrombus. Normal inferior vena cava. Normal retroperitoneum. Normal urinary bladder. There is absence of the uterus consistent with a prior hysterectomy. Normal abdominal wall. There are mild degenerative changes of the visualized lumbar spine. The patient is status post right hip replacement. CT/Abdomen/Pelvis W IV Cont ONLY IMPRESSION: Fatty infiltration of the liver. Status post cholecystectomy. 1.2 cm adenoma in the left adrenal gland. Scattered sigmoid diverticula. Infrarenal abdominal aortic aneurysm with a transverse dimension of 3.9 cm. Electronically Signed: August Maloney MD at 10:44 EST ,
--- NOTE | 2021-08-16 11:10 | ED.VIS.GI ---
HPI HPI - GI History of Present Illness Chief Complaint: GI Bleed Narrative Narrative: 70-year-old female presenting with GI bleed. She states that she had a large blood clot come out of her rectum after bowel movement today. She showed me a picture of this. She states has not had any bleeding since then. She denies lightheadedness, dizziness, shortness of breath. She has diffuse crampy abdominal pain and her son reports that she has a history of ulcerative colitis. The patient herself is a poor informant. She has not had a fever, nausea, vomiting. He has not had any black stools. She denies urinary complaints. [facility] Medical History Hypertension Peripheral arterial disease Home Medications trazodone 300 mg PO QHS PRN 02/07/16 [History Last Taken Unknown] cilostazol 100 mg PO BID 12/13/20 [History Last Taken Unknown] metoprolol tartrate 25 mg PO BID 12/13/20 [History Last Taken Unknown] clarithromycin 500 mg PO Q12H 7 Days #14 tab 02/27/21 [Rx Last Taken Unknown] dexamethasone [Decadron] 6 mg PO DAILY 7 Days #7 tab 06/27/21 [Rx Last Taken Unknown] Allergy/AdvReac Type Severity Reaction Status Date / Time cephalexin [From Keflex] Allergy Rash Verified 08/16/21 08:49 ciprofloxacin [From Cipro] Allergy Rash Verified 08/16/21 08:49 Penicillins Allergy Rash Verified 08/16/21 08:49 Sulfa (Sulfonamide Allergy Rash Verified 08/16/21 08:49 Antibiotics) Surgical History History of carpal tunnel release History of hysterectomy History of partial colectomy Social History Smoking Status: Never smoker ROS ROS ED Constitutional Constitutional ED: Denies chills or fever(s) ENT ENT ED: Denies rhinorrhea or sore throat Cardiovascular Cardiovascular: Denies chest pain or palpitations Respiratory/Chest Respiratory/Chest: Denies cough or dyspnea Gastrointestinal Gastrointestinal: Reports abdominal pain and other Details: Blood in stool ; Denies nausea or vomiting Genitourinary Genitourinary ED: Denies dysuria or hematuria Musculoskeletal Musculoskeletal: Denies arthralgias, back pain, myalgias or neck pain Integumentary Denies rash Neurologic Neurologic: Denies headache(s) or weakness Psychiatric Psychiatric: Denies anxiety or depression EXAM Physical Exam Const Vital Signs: 08/16/21 08:47 08/16/21 12:39 Temperature 97.9 F Temperature Source Temporal Pulse Rate 115 H 73 Respiratory Rate 16 16 Blood Pressure 127/80 H 135/75 H Blood Pressure Mean 95 95 Pulse Ox 92 95 Oxygen Delivery Method Room Air Room Air Positive obese General Appearance ED: NAD; Negative for pallor Nutritional Appearance: obese HEENT Reports moist mucous membranes normocephalic and atraumatic Eyes PERRL and EOMs intact bilaterally General Eye ED: Negative for pale conjunctiva Resp normal respiratory effort and clear to auscultation bilaterally Cardio regular rate and regular rhythm GI non-distended GI Narrative: Diffuse generalized pain. abdomen nonperitoneal. Palpation: soft Back/Spine no CVA tenderness Neuro Sensorium / Orientation: alert, oriented to person, oriented to place and oriented to time Psych mental status grossly normal Skin General Skin Exam: Negative for jaundice or pallor MDM MDM MDM Narrative Medical decision making narrative: Patient complaining of GI bleed. She is not on anticoagulation. I obtained blood work and her hemoglobin is 13 which is slightly decreased from her previous which is 16. Otherwise her INR is normal. CMP is unremarkable. Hemoccult positive. CT of the abdomen pelvis is obtained which shows fatty infiltration of the liver and a 1.2 cm adenoma in the left adrenal gland. There is also an infrarenal abdominal aortic aneurysm with a transverse dimension of 3.9 cm. I did report to the patient that her blood work was fairly normal although she was slightly anemic but did not need a blood transfusion. She is Hemoccult positive. I did tell the patient that I was going to speak to Dr. Beckman regarding her GI bleed and try to obtain close follow-up as I do not believe she need to be admitted and prior to giving her the results of her CAT scan she eloped from the emergency room. Impression: 1. GI bleed stable 2. Adrenal adenoma 3. 3.9 cm abdominal aortic aneurysm Lab Data Labs: Laboratory Results - last 24 hr 08/16/21 08/16/21 08/16/21 09:20 09:20 09:20 WBC 7.4 RBC 4.13 L Hgb 13.0 Hct 39.8 MCV 96.4 MCH 31.5 MCHC 32.7 RDW Std Deviation 50.3 H RDW Coeff of Pelon 14.3 Plt Count 359 MPV 8.6 Immature Gran % (Auto) 0.300 Neut % (Auto) 58.7 Lymph % (Auto) 28.1 Clinch % (Auto) 7.7 Eos % (Auto) 4.7 Baso % (Auto) 0.5 Absolute Neuts (auto) 4.3 Absolute Lymphs (auto) 2.07 Nucleated RBC % 0 PT 12.1 INR 1.0 Sodium 138 Potassium 3.6 Chloride 104 Carbon Dioxide 29.0 Anion Gap 5 BUN 14 Creatinine 0.94 Estim Creat Clear Calc 48.68 Est GFR (MDRD) Af Amer 75 Est GFR (MDRD) Non-Af 62 BUN/Creatinine Ratio 14.8 Glucose 143 H Calcium 9.4 Total Bilirubin 0.20 AST 15 ALT 17 Alkaline Phosphatase 72 Total Protein 7.1 Albumin 2.6 L Globulin 4.5 H Albumin/Globulin Ratio 0.6 L Radiography Diagnostic Testing: Clinical Impression(s) from Imaging Studies Abdomen/Pelvis CT 08/16/21 10:01 IMPRESSION: Fatty infiltration of the liver. Status post cholecystectomy. 1.2 cm adenoma in the left adrenal gland. Scattered sigmoid diverticula. Infrarenal abdominal aortic aneurysm with a transverse dimension of 3.9 cm. Electronically Signed: August aMloney MD at 10:44 EST Reading Location ID and State: [facility] / [place] , Service support , Discharge Plan Triage Chief Complaint: GI Bleed ED Provider: Matt Pedroza Dx/Rx/DC Orders Instructions: ED Lower GI Bleeding (Stable), ED Aneurysm Abd Aortic Stable Prescriptions: No Action trazodone 100 MG tablet 300 mg PO QHS PRN (Reason: Sleep) RF: 0 cilostazol 100 mg tablet 100 mg PO BID RF: 0 metoprolol tartrate 25 mg tablet 25 mg PO BID RF: 0 clarithromycin 500 mg tablet 500 mg PO Q12H 7 Days Qty: 14 RF: 0 dexamethasone [Decadron] 6 mg tablet 6 mg PO DAILY 7 Days Qty: 7 RF: 0 Primary Care Provider: Domo Adhikari Referrals: Domo Adhikari DO [Primary Care Provider] - Friend,DO Iván [STAFF PHYSICIAN] - Activity Restrictions/Additional Instructions: There was an adrenal adenoma found on your CAT scan today. This will require follow-up. Please see your primary care physician for referral. Disposition Disposition: Home, Self Care Discharge Date/Time: 08/16/21 13:27
[2021-08-16 12:39] VITALS: BP 135/75; PULSE 73; RESP 16; O2SAT 95
--- NOTE | 2021-08-16 13:27 | ED.RN ---
pt wanting iv to be taken out and said that would follow up with my sons gi dr. pt not wanting to wait for any dc paperwork. dr. pickering aware
== END 2021-08-16 13:27 | disposition home or self-care (01) ==
LOC: ED 09:31
PROVIDERS: Emergency Provider Student in an Organized Health Care Education/Training Program; PCP Family Medicine; Visit Provider Student in an Organized Health Care Education/Training Program
DX: K92.2 Gastrointestinal hemorrhage, unspecified (principal); I71.4 Abdominal aortic aneurysm, without rupture; D35.02 Benign neoplasm of left adrenal gland; E66.9 Obesity, unspecified
CPT/HCPCS: 74177; 80053; 82274; 85025; 85610; 99283; Q9967; A4216

== ENCOUNTER 2023-09-05 17:02 | Emergency (ER) | payer MEDICARE, OTHER, SELFPAY ==
[2023-09-05 17:04] VITALS: BP 155/94; PULSE 91; RESP 18; TEMP 36.6; O2SAT 93; BMI 33.7
--- NOTE | 2023-09-05 17:08 | EKG12_ITS ---
Test Reason : CP Blood Pressure : / mmHG Vent. Rate : 087 BPM Atrial Rate : 087 BPM P-R Int : 128 ms QRS Dur : 090 ms QT Int : 364 ms P-R-T Axes : 025 -01 054 degrees QTc Int : 438 ms Normal sinus rhythm Normal ECG Confirmed by Landon Alvarado ([id number]), photo editor KAYLA MCKEON ([id number]) on 09/09/2023 8:54:02 AM Referred By: VERONICA Confirmed By:Landon Alvarado
--- NOTE | 2023-09-05 17:25 | RAD_ITS ---
STUDY: X-RAY CHEST REASON FOR EXAM: Female, 72 years old. chest pain TECHNIQUE: Single AP portable view of the chest. COMPARISON: 06/27/2021. FINDINGS: The lungs are clear and expanded. There is no demonstrated pleural abnormality. Normal size heart. Previous CABG. Normal mediastinum and drake. Normal visualized pulmonary arteries. There is atherosclerotic calcification of the aortic arch with tortuosity. Normal visualized thoracic spine. Normal visualized ribs, clavicles, and shoulders. There is no demonstrated abnormality of the visualized soft tissue structures of the upper abdomen. RAD/Chest 1 View (Portable) IMPRESSION: No definite acute or significant abnormality seen. Electronically Signed: Juan Antonio Lopes MD at 17:50 EDT ,
[2023-09-05 17:30] LABS: Absolute Lymphocyte Count 2.78 X10^3/uL (0.83-4.51); Absolute Neutrophil Count 4.4 X10^3/uL (2.0-7.7); Basophil# 0.06 X10^3/uL; Basophil% 0.8 % (0-1); Eosinophil# 0.11 X10^3/uL; Eosinophils% 1.4 % (0-5); Hematocrit 46.7 % (37-47); Hemoglobin 15.6 g/dL (12.0-15.0); Lymphocyte # 2.78 X10^3/ul (0.83-4.51); Lymphocyte % 35.1 % (19-41); Mean Corp Hgb Conc 33.4 g/dL (32-36); Mean Corpuscular Volume 92.8 fL (81-99); Mean Platelet Vol. 8.1 fl (6.2-12.0); Monocyte# 0.53 X10^3/uL; Monocyte% 6.7 % (0-10); NRBC Flagged by Analyzer 0 % (0-5); Neutrophil # 4.43 X10^3/uL (2.7-7.7); Neutrophil % 55.7 % (47-70); Platelet Count 344 K/mm3 (150-450); RBC Distribution Width CV 12.5 % (11.6-14.6); RBC Distribution Width SD 42.5 fl (35.1-43.9); Red Blood Count 5.03 M/mm3 (4.2-5.4); White Blood Count 7.9 K/mm3 (4.4-11.0)
--- NOTE | 2023-09-05 17:42 | ED.VIS.CHEST ---
HPI History of Present Illness Chief Complaint: Chest Pain Detail of Chief Complaint: Right-sided that hurts with movement. Reproducible. Informant: patient Onset/Context/Timing Onset: Today, Yesterday and Days Activity at onset: gradual Timing: Continuous Quality: Positive for Dull Location: Right Chest Current Severity: Mild Maximum Severity: Mild Worsened By: Movement of Arm and Movement of Torso; Not Worsened By Exertion, Breathing or Coughing Relieved By: Remaining Still Associated Symptoms: Negative for Nausea, Vomiting, Diaphoresis, Dyspnea, Cough, Fever, Lightheadedness, Acid Reflux or Palpitations Narrative Narrative: 72-year-old female history of triple bypass in 2016 done in [place]. Also history of hypertension peripheral arterial disease. States on Friday she started getting right-sided chest pain also into her right upper back. Worse with movement. Denies any shortness of breath. No pleuritic pain. No fall injury or trauma. States she did have a history of a prior blood clot after surgery. But this feels different. Not associated with exertion. Worse if lying supine. Prior Similar Symptoms: No Recent Illness/Hospitalization: No CVD Risk Factors: Positive for Hypertension; Negative for Diabetes or Hypercholesterolemia PE Risk Factors: Positive for Prior DVT or PE; Negative for Recent Travel/Surgery, Recent Immobilization, Cancer or OCP + Smoking + >/=35 TAD Risk Factors: Negative for Marfan's Syndrome, Hypertension or Family History [facility] Medical History Hypertension Peripheral arterial disease Home Medications trazodone 100 mg tablet 300 mg PO QHS PRN Sleep 02/07/16 [History Last Taken Unknown] cilostazol 100 mg tablet 100 mg PO BID 12/13/20 [History Last Taken 09/05/23] metoprolol tartrate 25 mg tablet 25 mg PO BID 12/13/20 [History Last Taken 09/05/23] dexamethasone 6 mg tablet (Decadron) 6 mg PO DAILY 7 days #7 tabs 06/27/21 [Rx Last Taken Unknown] Allergy/AdvReac Type Severity Reaction Status Date / Time cephalexin [From Keflex] Allergy Rash Verified 09/05/23 17:04 ciprofloxacin [From Cipro] Allergy Rash Verified 09/05/23 17:04 Penicillins Allergy Rash Verified 09/05/23 17:04 Sulfa (Sulfonamide Allergy Rash Verified 09/05/23 17:04 Antibiotics) Surgical History History of carpal tunnel release History of hysterectomy History of partial colectomy Social History Smoking Status: Never smoker ROS ROS ED ROS Narrative Denies recent illness. Right-sided chest pain. Review of Systems ROS Unobtainable: Denies due to encephalopathy Constitutional Constitutional ED: Denies chills, fever(s), subjective or sweats Eyes Eyes: Reports none ENT ENT ED: Denies ear pain, rhinorrhea or sore throat Cardiovascular Cardiovascular: Reports as per HPI and chest pain; Denies palpitations, racing heartbeat or other Respiratory/Chest Respiratory/Chest: Denies cough or dyspnea Gastrointestinal Gastrointestinal: Denies abdominal pain, constipation, diarrhea, melena, nausea or vomiting Genitourinary Genitourinary ED: Denies dysuria or hematuria Musculoskeletal Musculoskeletal: Reports back pain; Denies arthralgias, myalgias or neck pain Integumentary Denies abscess or Abrasions Neurologic Neurologic: Denies headache(s) or paresthesias Psychiatric Psychiatric: Denies anxiety, depression, suicidal ideation or suicidal thoughts Endocrine Endocrinology: Denies cold intolerance, heat intolerance, polydipsia, polyphagia or polyuria Hematologic/Lymphatic Hematologic/Lymphatic: Denies easy bleeding, easy bruising or lymphadenopathy Allergic/Immunologic Allergic/Immunologic ED: Denies mouth swelling, tongue swelling or urticaria EXAM Physical Exam Narrative Exam Narrative: 72-year-old female vital signs stable afebrile. Pulse ox 93% on room air no signs hypoxia. No distress. Son at bedside. HEENT exam unremarkable. Neck nontender no JVD. Lungs clear to auscultation bilaterally. Heart regular rhythm rate about 90 no murmur. She has reproducible chest wall pain over her sternum right chest and upper back. Musculoskeletal pain. No redness or warmth. No bruising or crepitance. No subcu air. No bony deformity. No signs of trauma. Left chest and left upper back are nontender. Abdomen soft nontender. Moving all 4 extremities. 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 Equal symmetrical radial pulses. Calves are nontender without edema or cords. Neurologically she is awake and alert with no focal motor deficits. Const Vital Signs: 09/05/23 17:04 09/05/23 17:08 09/05/23 17:08 Temperature 97.8 F Temperature Source Temporal Pulse Rate 91 Respiratory Rate 18 Respiratory Effort Normal Blood Pressure 155/94 H Blood Pressure Mean 114 Pulse Ox 93 Oxygen Delivery Method Room Air Room Air 09/05/23 18:03 09/05/23 19:00 Temperature 98.4 F 98.1 F Temperature Source Temporal Temporal Pulse Rate 84 74 Respiratory Rate 18 16 Respiratory Effort Blood Pressure 148/72 H 169/88 H Blood Pressure Mean 97 115 Pulse Ox 97 99 Oxygen Delivery Method Room Air Room Air Positive well nourished and well developed; Negative for cachectic, contractures or unkempt General Appearance ED: well developed and NAD; Negative for unkempt, cachectic, contractures or pallor Nutritional Appearance: Negative for cachectic HEENT Reports moist mucous membranes; Denies dry mucous membranes normocephalic and atraumatic; Negative for trauma or tenderness Mouth ED: No dry mucous membranes Mouth: No dry mucous membranes Eyes PERRL and EOMs intact bilaterally General Eye ED: Negative for pale conjunctiva, scleral icterus or other Neck no lymphadenopathy, supple and no JVD General: Negative for tenderness Chest Wall inspection of chest normal and palpation of chest normal Chest: Negative for tenderness Resp normal respiratory effort and clear to auscultation bilaterally Effort and Inspection: Negative for respiratory distress Auscultation: Negative for rales, rhonchi, wheezes or diminished lung sounds Cardio regular rate, regular rhythm, S1 normal heart sound, S2 normal heart sound and no murmurs Rate: Negative for bradycardia or tachycardic Rhythm: Negative for abnormal rhythm Peripheral Pulses: pulses 2+ throughout GI normal to inspection, nondistended, normoactive bowel sounds, soft to palpation, non-tender, non-distended and no masses Auscultation: Negative for hyperactive bowel sounds Palpation: Negative for splenomegaly or mass Back/Spine no CVA tenderness and no thoracic nor lumbar tenderness Back/Spine Narrative: Reproducible tenderness over her sternum, right side of her chest and right upper back along the shoulder and upper thoracic area but not over the spine. No signs of trauma nor discoloration. No redness or warmth. No bruising. General Back: Negative for CVA tenderness Cervical Spine: Negative for cervical spine tenderness Extremity General Extremety ED: Negative for edema, pulses abnormal or tenderness General Extremity: Negative for edema or pulses abnormal Neuro oriented x3 and CN's II-XII intact bilaterally Sensorium / Orientation: awake, alert, oriented to person, oriented to place and oriented to time; Negative for confused, lethargic, stuporous or other Motor Exam: strength 5/5 throughout; Negative for general weakness or strength abnormal Psych mental status grossly normal Appearance: Negative for unkempt Attitude: No agitated Mood & Affect: Negative for depressed, anxious or tearful Skin no rashes or lesions noted and no wounds General Skin Exam: Negative for jaundice or pallor Rashes: No rashes noted Trauma: Negative for abrasion, laceration or puncture Heart Score History: Slightly/Non-Suspicious ECG: Normal Age: >/= 65 years Risk Factors: >/= 3 Risk Factors or History of CAD Troponin: </= Normal Limit Score: 4 MDM MDM MDM Narrative Medical decision making narrative: 72-year-old female with reproducible right-sided chest wall and upper back pain. She undergo cardiac workup. Clinically I do not think this is cardiac in etiology. I do not think it is a PE. Appears to be musculoskeletal. Repeat exam patient doing well at 7:38 PM. Cardiac workup was negative. He is reproducible pain. She will be discharged home Tylenol for pain. Limited ibuprofen. Ice. This should progressively improve. Otherwise follow-up with primary care physician. History & Record Review Discussion w/independent historian: Patient and Family Additional record(s) reviewed:: Prior inpatient record, Prior outpatient record, Prior ED visit and Prior labs Lab Data Attestation: I reviewed the patient's lab results. Lab results narrative: CBC shows no white count of 7. H&H 15 and 46. Platelets 744. Chemistries show gap 7. Normal BUN and creatinine. Glucose 126. Troponin 8. Labs: Laboratory Results - last 24 hr 09/05/23 17:25 WBC 7.9 RBC 5.03 Hgb 15.6 H Hct 46.7 MCV 92.8 MCH 31.0 MCHC 33.4 RDW Std Deviation 42.5 RDW Coeff of Pelon 12.5 Plt Count 344 MPV 8.1 Immature Gran % (Auto) 0.300 Neut % (Auto) 55.7 Lymph % (Auto) 35.1 Sawyer % (Auto) 6.7 Eos % (Auto) 1.4 Baso % (Auto) 0.8 Absolute Neuts (auto) 4.4 Absolute Lymphs (auto) 2.78 Nucleated RBC % 0 Sodium 138 Potassium 3.7 Chloride 104 Carbon Dioxide 27.0 Anion Gap 7 BUN 11 Creatinine 0.98 Estim Creat Clear Calc 56.43 Est GFR (MDRD) Af Amer 72 Est GFR (MDRD) Non-Af 59 L BUN/Creatinine Ratio 11.3 Glucose 126 H Calcium 9.4 Troponin I High Sens 8 Radiography Chest X-Ray - ED: 1 View, Read by ED Physician, Heart, Lungs, Bony Structures, No Acute Disease and Chronic Changes Diagnostic Testing: Clinical Impression(s) from Imaging Studies Chest X-Ray 09/05/23 17:25 IMPRESSION: No definite acute or significant abnormality seen. Electronically Signed: Juan Antonio Lopes MD at 17:50 EDT , Chest x-ray, portable, single view interpreted by myself shows no acute abnormality. Normal cardiac silhouette. Normal mediastinum. Normal lung canchola. Prior sternotomy with wires in place. Rhythm Strip Rhythm Strip: Sinus Rhythm Rate: 87 Ectopy: None EKG Initial EKG: Attestation: I personally reviewed and interpreted this EKG as follows: Interpretation: Sinus Rhythm and No Acute Injury Pattern Comments: Normal sinus rhythm rate 87 no acute signs of IL or ischemia. Discharge Plan Triage Chief Complaint: Chest Pain ED Provider: Tyler Roberts Dx/Rx/DC Orders Clinical Impression: Acute chest wall pain, History of CAD (coronary artery disease), Hx of CABG Instructions: ED Chest Pain, Uncertain Cause Prescriptions: No Action trazodone 100 MG tablet 300 mg PO QHS PRN (Reason: Sleep) cilostazol 100 mg tablet 100 mg PO BID Patient Comments: take 1 tablet by mouth twice a day metoprolol tartrate 25 mg tablet 25 mg PO BID Patient Comments: take 1 tablet by mouth twice a day dexamethasone [Decadron] 6 mg tablet 6 mg PO DAILY 7 Days Qty: 7 0RF Primary Care Provider: Domo Adhikari Referrals: Domo Adhikari DO [Primary Care Provider] - 1 Week if not improving Activity Restrictions/Additional Instructions: Your labs, chest x-ray and EKG were all good. I think this is just chest wall pain. Ice to your chest wall. Tylenol for pain. Limited Motrin like 400 mg twice a day for the next 5 days and this should all improve. Follow-up with your doctor if not improving or return if worse. Disposition Disposition: Home, Self Care
[2023-09-05 17:49] LABS: Anion Gap 7 (5-15); BUN 11 mg/dL (7-18); BUN/Creat Ratio 11.3 RATIO (10-20); Calcium,Total 9.4 mg/dL (8.5-10.1); Chloride 104 mmol/L (98-107); Creatinine, Serum 0.98 mg/dL (0.55-1.02); EST Glomerular Filtration Rate 59 mL/min (>60); Est Glom Filt Rate - Afr Amer 72 mL/min (>60); Estimated Creatinine Clearance 56.43 ml/min; Glucose 126 mg/dL (74-106); Potassium 3.7 mmol/L (3.5-5.1); Sodium Level 138 mmol/L (136-145); Troponin-I HS (w/2H Reflex) 8 pg/mL (3.0-54.0)
[2023-09-05 18:03] VITALS: BP 148/72; PULSE 84; RESP 18; TEMP 36.9; O2SAT 97
[2023-09-05 19:00] VITALS: BP 169/88; PULSE 74; RESP 16; TEMP 36.7; O2SAT 99
[2023-09-05 19:28] LABS: Reflex Troponin-HS? (from REC) Y
[2023-09-05 20:00] VITALS: BP 163/87; PULSE 74; RESP 16; TEMP 36.4; O2SAT 94
== END 2023-09-05 20:09 | disposition home or self-care (01) ==
PROVIDERS: Emergency Provider Emergency Medicine; PCP Family Medicine; Visit Provider Emergency Medicine
DX: R07.89 Other chest pain (principal); I25.10 Atherosclerotic heart disease of native coronary artery without angina pectoris; I10 Essential (primary) hypertension; Z79.899 Other long term (current) drug therapy; Z95.1 Presence of aortocoronary bypass graft
CPT/HCPCS: 71045; 80048; 84484; 85025; 93005; 99284; A4216

== ENCOUNTER 2023-12-18 05:36 | Inpatient (IN) | payer MEDICARE, OTHER, SELFPAY ==
[2023-12-18] VITALS (19 sets, daily range): BP systolic 90–148; BP diastolic 64–120; PULSE 75–116; RESP 16–41; TEMP 36.5–37.1; O2SAT 83–96; BMI 30.7; BMI 30.2
--- NOTE | 2023-12-18 05:49 | CT_ITS ---
EXAM: CT HEAD WITHOUT INTRAVENOUS CONTRAST CLINICAL INDICATION: DYSEQUILIBRIUM TECHNIQUE: Multiple axial images were obtained of the head without intravenous contrast. This CT exam was performed using one or more of the following dose reduction techniques: automated exposure control, adjustment of the mA and/or kV according to patient size, and/or use of iterative reconstruction technique. RADIATION DOSE: CTDIvol = 44.99 mGy, DLP = 812.98 mGy-cm COMPARISON: 02/07/2016. FINDINGS: BRAIN AND EXTRA-AXIAL SPACES: Mild increased size of the CSF density lesion now measures 1 cm in the right inferior capsuloganglionic region. Mild generalized atrophy. Mild low density bilaterally in the deep white matter. No intra- or extra-axial hemorrhage. No evidence of acute infarct. No intracranial mass or mass effect. There is preservation of the gar/white matter interface. Posterior fossa structures are unremarkable. Basal cisterns are patent. BONES/JOINTS: Unremarkable. No discrete lytic or blastic abnormalities. SINUSES: Unremarkable as visualized. Clear. MASTOID AIR CELLS: Unremarkable. Clear. ORBITS: Visualized globes, extraocular muscles, optic nerves and retrobulbar fat appear unremarkable. CT/Brain/Head without Contrast IMPRESSION: 1. Mild increased size of the CSF density lesion now measures 1 cm in the right inferior capsuloganglionic region. This may represent a prominent Virchow Ian space versus old lacunar infarct. 2. Mild generalized atrophy. Mild low density bilaterally in the deep white matter. This likely represents chronic small vessel ischemic changes in the deep white matter. Electronically Signed: Landon Paz MD at 6:34 EDT ,
--- NOTE | 2023-12-18 05:49 | EKG12_ITS ---
Test Reason : SOB Blood Pressure : / mmHG Vent. Rate : 102 BPM Atrial Rate : 102 BPM P-R Int : 142 ms QRS Dur : 090 ms QT Int : 344 ms P-R-T Axes : 031 -25 059 degrees QTc Int : 448 ms Sinus tachycardia Low voltage QRS Nonspecific T wave abnormality Abnormal ECG Confirmed by AIDEN SANTIAGO, KEIKO ([id number]), newspaper editor ALEJANDRINA FIORE ([id number]) on 12/19/2023 9:36:06 AM Referred By: Confirmed By:KEIKO WOLFE MD
--- NOTE | 2023-12-18 05:51 | EDS_ITS ---
HPI History of Present Illness Chief Complaint: Shortness of Breath Informant: patient, family (son) and EMS Narrative Narrative: Patient presents with multiple complaints. She presents here by EMS because 2 hours ago she got up and felt very vertiginous and disequilibrium to the point where she was off balance and fell to the floor. She states she fell against carpet and did not hurt herself. She initially denies syncope, but when the son arrived later, he disagrees and states that she was unconscious and not responding for a minute or 2 which is why he called 911. Upon sitting still for a while afterwards, the vertiginous symptoms/spinning gradually resolved and she does not feel that at this moment while sitting here in the ED. She states she was feeling like this off and on yesterday as well but did not come to the emergency department. Initially when asked if she has had URI symptoms recently she states no, but when the son arrived he states that she has had runny nose, congestion, and a cough for the last several days at least. When asked if she was dyspneic at all she states no, but the son states that she has been dyspneic. He lives with her. The patient also states that for the last several days at least, she has had constant pain in her right shoulder and entire right chest, and the pain radiates up into her right neck at times. She thinks it may get worse when she moves around, but states it has not been intermittent and the discomfort has been constant. She states some of this pain worsens when she takes a deep breath. No history of DVT or PE, no recent leg pain or swelling. No problems with speech or confusion today. [facility] Medical History Peripheral arterial disease Hypertension Home Medications ?Medication ?Instructions ?Recorded ?Last Taken ?Type trazodone 100 mg tablet 300 mg PO QHS PRN Sleep 02/07/16 Unknown History cilostazol 100 mg tablet 100 mg PO BID 12/13/20 09/05/23 History metoprolol succinate 50 mg 50 mg PO DAILY 12/18/23 Unknown History tablet,extended release 24 hr Allergy/AdvReac Type Severity Reaction Status Date / Time cephalexin (From Keflex) Allergy Rash Verified 12/18/23 05:38 ciprofloxacin (From Cipro) Allergy Rash Verified 12/18/23 05:38 Penicillins Allergy Rash Verified 12/18/23 05:38 Sulfa (Sulfonamide Allergy Rash Verified 12/18/23 05:38 Antibiotics) Surgical History History of carpal tunnel release History of hysterectomy History of partial colectomy Social History Smoking Status: Former smoker ROS ROS ED Constitutional Constitutional ED: Denies chills or fever(s) Eyes Eyes: Denies change in vision or diplopia ENT ENT ED: Reports disequillibrium, nasal congestion, rhinorrhea, vertigo and other Details: No hearing disturbance, earache, tinnitus, or roaring. ; Denies ear pain, sore throat or tinnitus Cardiovascular Cardiovascular: Reports chest pain; Denies palpitations Respiratory/Chest Respiratory/Chest: Reports as per HPI, cough and dyspnea Gastrointestinal Gastrointestinal: Reports nausea; Denies abdominal pain, diarrhea or vomiting Genitourinary Genitourinary ED: Denies dysuria or hematuria Musculoskeletal Musculoskeletal: Reports other Details: Right shoulder pain see HPI ; Denies back pain or neck pain Integumentary Denies abscess or rash Neurologic Neurologic: Denies headache(s), paresthesias or weakness Psychiatric Psychiatric: Denies suicidal thoughts EXAM Physical Exam Const Vital Signs: 12/18/23 05:37 12/18/23 05:37 12/18/23 05:43 Temperature 98.8 F Temperature Source Oral Pulse Rate 116 H Respiratory Rate 22 H Respiratory Effort Short of Breath Blood Pressure 118/91 H Blood Pressure Mean 100 Pulse Ox 84 91 Oxygen Delivery Method Room Air Room Air Nasal Cannula Oxygen Flow Rate (L/min) 2 12/18/23 05:49 12/18/23 05:58 12/18/23 07:00 Temperature Temperature Source Pulse Rate 100 91 Respiratory Rate 18 21 H Respiratory Effort Blood Pressure 118/73 Blood Pressure Mean 84 Pulse Ox 90 Oxygen Delivery Method Nasal Cannula Oxygen Flow Rate (L/min) 3 Positive well nourished, well developed and unkempt General Appearance ED: unkempt, well developed and NAD HEENT Reports moist mucous membranes normocephalic and atraumatic Eyes PERRL and EOMs intact bilaterally Eyes Narrative: No pathologic nystagmus horizontal, vertical, or rotatory. Neck full ROM and supple Neck Narrative: No lymphadenopathy or tenderness. No carotid bruits. Chest Wall inspection of chest normal Chest Narrative: Tender right chest reproducing her right-sided chest pain. No crepitance or step-off. No subcutaneous emphysema. No rash. Resp normal respiratory effort and clear to auscultation bilaterally Resp Narrative: Diminished breath sounds throughout, symmetric bilaterally Effort and Inspection: able to speak in complete sentences Cardio regular rate, regular rhythm and no murmurs Rate: other Other Details: Mild tachycardia GI non-tender and non-distended Auscultation: normoactive bowel sounds Palpation: soft Back/Spine no CVA tenderness General Back: other FROM Extremity normal to inspection Extremity Narrative: Full range of motion including right shoulder without significant or limiting discomfort. General Extremety ED: Negative for edema, pulses abnormal or tenderness General Extremity: Negative for edema or pulses abnormal Neuro oriented x3, CN's II-XII intact bilaterally and no sensory deficits noted Neuro Narrative: Normal speech. Some answers to questions seems confused but not aphasic. Oriented to the month and her age. Normal [id number] and [id number] bilaterally, NIHSS 0. Sensorium / Orientation: awake and alert Motor Exam: strength 5/5 throughout Psych Appearance: unkempt Skin no rashes or lesions noted and no wounds MDM MDM MDM Narrative Medical decision making narrative: Patient has had a chest discomfort for several days, URI symptoms and dyspnea f or at least several days, disequilibrium has been intermittent since sometime yesterday. Hypoxic on room air upon arrival she is not on home oxygen, we placed her on 4 L she is 91%. Lungs are grossly clear. Her EKG is normal. Differential here includes acute coronary syndrome, PE, pneumonia, it also includes labyrinthitis due to viral infection, stroke in a patient who has a history of peripheral arterial disease, and/or BPPV. Troponin returns at 36, within normal limits. Chest x-ray 2 views shows some hyperexpansion but no acute infiltrates radiology in agreement. COVID/influenza/RSV swab negative. CT of the head images and report are reviewed, I agree with that. 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 Her potassium is low at 3.0 but the rest of her labs are noted and relatively unremarkable. Patient did not have recurrent vertiginous symptoms. She is suggesting that she was having dizziness that felt like spinning and she was off balance and felt a little nauseated, yesterday and this morning, her blood pressure has been very normal with 118 systolics, so this may be all peripheral in etiology. Patient was treated with an albuterol treatment, she stated that she was not dyspneic prior to this, afterwards she is still requiring 4-5 L of oxygen to keep her at 91%. I discussed the possible need to be admitted to the hospital given this to potentially get her home on oxygen and she is adamantly refusing admission. I discussed the pros and cons of that with the son in the room. She states she understands and will consider based on our testing here. I reviewed prior ED visit and CT angiography of the chest. It was consistent with chronic interstitial lung disease, she has not followed up for this, and probably is chronically hypoxic. She understands that to get oxygen at home now, she would need to be admitted to the hospital. Due to hypoxemia, dyspnea, right-sided chest pain although it is reproducible, and otherwise unexplained syncope this morning, PE was considered; her D-dimer returned very elevated. Therefore at this time CT angiography of the chest is ordered, and the patient will be checked out to the ED physician on the next shift. Lab Data Attestation: I reviewed the patient's lab results. Labs: Laboratory Results - last 24 hr 12/18/23 12/18/23 05:50 05:57 WBC 8.3 RBC 4.69 Hgb 14.5 Hct 45.0 MCV 95.9 MCH 30.9 MCHC 32.2 RDW Std Deviation 46.5 H RDW Coeff of Pelon 13.4 Plt Count 303 MPV 8.7 Immature Gran % (Auto) 0.400 Neut % (Auto) 58.1 Lymph % (Auto) 31.7 Burt % (Auto) 7.7 Eos % (Auto) 1.6 Baso % (Auto) 0.5 Absolute Neuts (auto) 4.9 Absolute Lymphs (auto) 2.64 Nucleated RBC % 0 D-Dimer Quant (PE/DVT) 5.32 H* Sodium 137 Potassium 3.0 L Chloride 103 Carbon Dioxide 26.0 Anion Gap 8 BUN 10 Creatinine 1.16 H Estim Creat Clear Calc 44.77 Est GFR (MDRD) Af Amer 59 L Est GFR (MDRD) Non-Af 48 L BUN/Creatinine Ratio 8.6 L Glucose 139 H Calcium 8.9 Troponin I High Sens 36 Radiography Diagnostic Testing: Clinical Impression(s) from Imaging Studies Brain CT 12/18/23 05:49 IMPRESSION: 1. Mild increased size of the CSF density lesion now measures 1 cm in the right inferior capsuloganglionic region. This may represent a prominent Virchow Ian space versus old lacunar infarct. 2. Mild generalized atrophy. Mild low density bilaterally in the deep white matter. This likely represents chronic small vessel ischemic changes in the deep white matter. Electronically Signed: Landon Paz MD at 6:34 EDT , Chest X-Ray 12/18/23 06:15 IMPRESSION: No acute cardiopulmonary abnormality. Electronically Signed: Landon Paz MD at 6:35 EDT , Rhythm Strip Rhythm Strip: Sinus Tach Rate: 102 Ectopy: None EKG Initial EKG: Attestation: I personally reviewed and interpreted this EKG as follows: Interpretation: No Acute Injury Pattern and Sinus Tachycardia Prior EKG tracings: available for review Prior: Unchanged Discharge Plan Triage Chief Complaint: Shortness of Breath ED Provider: Marcos Velasquez Dx/Rx/DC Orders Clinical Impression: Hypoxemia, Vertigo, intermittent, Hypokalemia, Syncope and collapse, Right- sided chest wall pain Prescriptions: No Action trazodone 100 MG tablet 300 mg PO QHS PRN (Reason: Sleep) cilostazol 100 mg tablet 100 mg PO BID Patient Comments: take 1 tablet by mouth twice a day metoprolol succinate 50 mg tablet extended release 24 hr 50 mg PO DAILY Primary Care Provider: Domo Adhikari Referrals: Domo Adhikari DO [Primary Care Provider] - Print Language: Cuban
[2023-12-18] MEDS: Albuterol 2.5 MG/3 ML VIAL.NEB. INHALATION ×2 (05:57→12:01)
--- NOTE | 2023-12-18 06:15 | RAD_ITS ---
EXAM: XR CHEST, 2 VIEWS CLINICAL INDICATION: cough sob TECHNIQUE: Frontal and lateral views of the chest. COMPARISON: 09/05/2023. FINDINGS: LUNGS AND PLEURAL SPACES: Unremarkable. No consolidation or edema. No pneumothorax. No effusion. HEART: Status post coronary artery bypass graft. MEDIASTINUM: Central airways and mediastinal contour are unremarkable. BONES/JOINTS: Sternal wires. No acute fracture. SOFT TISSUES: Unremarkable. RAD/Chest PA and Lateral IMPRESSION: No acute cardiopulmonary abnormality. Electronically Signed: Landon Paz MD at 6:35 EDT ,
[2023-12-18 06:23] LABS: Absolute Lymphocyte Count 2.64 X10^3/uL (0.83-4.51); Absolute Neutrophil Count 4.9 X10^3/uL (2.0-7.7); Basophil# 0.04 X10^3/uL; Basophil% 0.5 % (0-1); Eosinophil# 0.13 X10^3/uL; Eosinophils% 1.6 % (0-5); Hemoglobin 14.5 g/dL (12.0-15.0); Lymphocyte # 2.64 X10^3/ul (0.83-4.51); Lymphocyte % 31.7 % (19-41); Mean Corp Hgb Conc 32.2 g/dL (32-36); Mean Corpuscular Hgb 30.9 pg (27.0-32.0); Mean Corpuscular Volume 95.9 fL (81-99); Mean Platelet Vol. 8.7 fl (6.2-12.0); Monocyte# 0.64 X10^3/uL; Monocyte% 7.7 % (0-10); NRBC Flagged by Analyzer 0 % (0-5); Neutrophil # 4.86 X10^3/uL (2.7-7.7); Neutrophil % 58.1 % (47-70); Platelet Count 303 K/mm3 (150-450); RBC Distribution Width CV 13.4 % (11.6-14.6); RBC Distribution Width SD 46.5 fl (35.1-43.9); Red Blood Count 4.69 M/mm3 (4.2-5.4); White Blood Count 8.3 K/mm3 (4.4-11.0)
[2023-12-18 06:49] LABS: Anion Gap 8 (5-15); BUN 10 mg/dL (7-18); BUN/Creat Ratio 8.6 RATIO (10-20); Calcium,Total 8.9 mg/dL (8.5-10.1); Chloride 103 mmol/L (98-107); Creatinine, Serum 1.16 mg/dL (0.55-1.02); EST Glomerular Filtration Rate 48 mL/min (>60); Est Glom Filt Rate - Afr Amer 59 mL/min (>60); Estimated Creatinine Clearance 44.77 ml/min; Glucose 139 mg/dL (74-106); Sodium Level 137 mmol/L (136-145); Troponin-I HS 36 pg/mL (3.0-54.0)
[2023-12-18 07:49] LABS: D-Dimer Quantitative (DVT/PE) 5.32 FEU/ug/m (0.27-0.49)
[2023-12-18] MEDS: Acetaminophen 500 MG Tablet 1000 MG PO (07:49)
--- NOTE | 2023-12-18 07:49 | CT_ITS ---
STUDY: CTA CHEST WITH CONTRAST REASON FOR EXAM: Female, 73 years old. Shortness of breath. Chest pain. RADIATION DOSAGE (If Supplied By Facility): CTDIvol = ( 11.73 ) mGy, DLP = ( 473.19 ) mGycm TECHNIQUE: Transaxial imaging was performed following intravenous administration of 100 ml of Isovue-370 contrast material. Coronal and sagittal reformatted images were created. 3D post processed images were created. Individualized dose optimization techniques were used for this CT. COMPARISON: Prior study dated: 06/27/2021 FINDINGS: LUNGS: There are stable emphysematous changes noted in the lungs. There are no pulmonary infiltrates. There are no pulmonary nodules or masses. PLEURAL SPACE: There are no pleural effusions. There is no pneumothorax. MEDIASTINUM: The patient is status post sternotomy and coronary artery bypass. The [place] coronary arteries are calcified. The heart and pericardium are within normal limits. There is no pneumomediastinum. There is no thoracic lymphadenopathy. VESSELS: There is an acute pulmonary emboli in the right distal main pulmonary artery. There are additional segmental and subsegmental pulmonary emboli throughout all lobes of both lungs. There is flattening of the interventricular septum, consistent with early right heart strain. The pulmonary artery is normal in caliber. There is no thoracic aortic aneurysm or dissection. There are atherosclerotic calcifications noted. UPPER ABDOMEN: The liver is low in density, consistent with fatty infiltration. There is a stable left adrenal nodule. BONES: There are no destructive osseous lesions. SOFT TISSUES: The visualized soft tissues are unremarkable. CT/CTA Chest W/WO Contrast IMPRESSION: Acute pulmonary embolus in the right distal main pulmonary artery. Additional segmental and subsegmental pulmonary emboli throughout all lobes of both lungs. Flattening of the interventricular septum of the heart, consistent with early right heart strain. No thoracic aortic aneurysm or dissection. Atherosclerosis and coronary artery disease, status post sternotomy and coronary artery bypass. No pulmonary infiltrates or pleural effusions. Stable emphysema. Fatty liver. Stable left adrenal nodule. N.B. : The above Results were Read Back by Mingo Prakash MD to Chet Carson MD, and understanding confirmed on 12/18/2023 08:30:07 (ET). Electronically Signed: Mingo Prakash MD at 8:31 EDT ,
[2023-12-18 09:30] LABS: Prothrombin Time (Protime)PT. 13.5 SECONDS (11.7-14.9)
[2023-12-18 09:31] LABS: Partial Thromboplast Time 26.9 Seconds (24.1-36.2)
[2023-12-18] MEDS: Potassium Chloride Oral Tablet 20 MEQ 40 MEQ PO (09:31)
[2023-12-18] MEDS: Heparin Injection (Vial) 5,000 UNIT/ML VIAL 4000 UNIT IV (09:32)
[2023-12-18] MEDS: HEPARIN/D5w 25,000 UNITS 25,000 UNITS/250 ML IV.SOLN. 10 UNITS CONT INF (09:32)
--- NOTE | 2023-12-18 09:37 | ECHOD_ITS ---
Reason For Study: emboli Procedure This was a 2D Doppler, Color Flow transthoracic echocardiogram. Exam performed portable in ED. Left Ventricle Normal LV size. D shaped septum in systole and diastole. The left ventricular ejection fraction is 55 %. No regional wall motion abnormalities noted. Right Ventricle Normal RV size. Moderately decreased right ventricular systolic function. Apical sparing noted. Atria Normal left atrium. Normal right atrium. Mitral Valve Normal mitral valve. Tricuspid Valve Normal tricuspid valve. Severe (4+) tricuspid valve insufficiency. Pulmonary artery systolic pressure is 100 mmHg. Severe pulmonary hypertension. Aortic Valve Trisinus/trileaflet aortic valve. Pulmonic Valve Normal pulmonic valve. Great Vessels Normal aortic root. The pulmonary artery is normal size. Inferior vena cava collapse with respiration. Pericardium/Pleural No pericardial effusion. MMode/2D Measurements & Calculations LVIDd: 3.7 cm IVSd: 0.93 cm LAV(MOD-sp4): 16.3 ml LVIDs: 2.2 cm LVPWd: 1.3 cm FS: 41.1 % LA A4 area: 9.9 cm2 LA dimension(2D): 4.1 cm RA A4 area: 19.0 cm2 Time Measurements MV dec time: 0.14 sec Doppler Measurements & Calculations MV E max josias: 53.3 cm/sec Lat Peak E' Josias: 12.2 cm/sec Med Peak E' Josias: 11.3 cm/sec MV A max josias: 105.9 cm/sec E/E' lat: 4.4 E/E' med: 4.7 MV E/A: 0.50 MV V2 max: 85.7 cm/sec MV dec slope: 369.4 cm/sec2 Ao V2 max: 142.7 cm/sec MV max P.9 mmHg Ao max P.2 mmHg MV V2 mean: 46.1 cm/sec Ao V2 mean: 93.8 cm/sec MV mean P.1 mmHg Ao mean P.1 mmHg MV V2 VTI: 15.6 cm Ao V2 VTI: 22.7 cm AV (velocity ratio): 0.84 LV V1 max: 126.8 cm/sec TR max josias: 483.8 cm/sec LV V1 max P.4 mmHg TR max P.6 mmHg LV V1 mean P.2 mmHg LV V1 mean: 81.6 cm/sec LV V1 VTI: 19.1 cm ECHO/Echo Complete Interpretation Summary The left ventricular ejection fraction is 55 %. Normal LV size. D shaped septum in systole and diastole. Pulmonary artery systolic pressure is 100 mmHg. Severe pulmonary hypertension. Ordering Physician: Pippa Urias Referring Physician: martha camacho Performed By: Kamryn Nieves RCS
--- NOTE | 2023-12-18 09:37 | PCM.HP.STD ---
HPI - General General Date of Admission: 12/18/23 Date of Service: 12/18/23 Chief Complaint: Shortness of breath/right-sided chest pain/syncope HPI Narrative ISABEL GAITAN, is a 73 F who presented to the emergency department at [facility] on 12/18/2023 with multiple complaints including shortness of breath, syncope, and right-sided chest pain. She evidently had symptoms for about 2 to 3 days now that have progressively getting worse. Her son is present and states he tried to get her to come to the emergency department however she was reluctant. Chest pain was predominantly on the right side of her entire chest and her right shoulder and right neck. She thought maybe it got worse when she moves around however she is a fairly poor historian. She does indicate that some of her pain is pleuritic. She initially denied history of DVT or PE however her son reported that she had a history of PE after hip replacement about 10 years ago. Vital signs on presentation showed temperature of 98.8, heart rate 116, respiratory was 22, blood pressure was 118/91 and pulse ox was 84% on room air. Sats improved to 91% on 2 L nasal cannula. CBC was unremarkable. Coags were unremarkable. Chemistry panel showed mild hypokalemia with a potassium of 3.0 and a mildly elevated serum creatinine 1.16 with a baseline of 0.7-1.0. Her glucose was 139. Initial troponin was 36. A D-dimer was obtained due to her pleuritic chest pain and was found to be 5.32 so she was taken for CT of the chest. CTA demonstrated acute pulmonary embolus in the right distal main pulmonary artery with additional segmental and subsegmental pulmonary emboli throughout all the lobes of bilateral lungs as well as flattening of the interventricular septum of the heart consistent with early right heart strain. BNP was not able to be obtained due to our analyzer not functioning at this time. No other acute disease was identified however she was noted to have fatty liver and a stable left adrenal nodule. Case was discussed by the emergency department physician with Dr. Graves who recommended heparin drip and that he would evaluate her as an inpatient for embolectomy. [facility] Medical History History of tobacco abuse Hyperlipidemia Chronic interstitial lung disease Coronary artery disease Fracture of toe Peripheral arterial disease Hypertension Home Medications ?Medication ?Instructions ?Recorded ?Last Taken ?Type trazodone 100 mg tablet 300 mg PO QHS PRN Sleep 02/07/16 12/17/23 History cilostazol 100 mg tablet 100 mg PO BID 12/13/20 12/17/23 History albuterol sulfate 90 mcg/actuation 2 puff inhalation Q4H PRN 12/18/23 Unknown History aerosol inhaler shortness of breath or wheezing metoprolol succinate 50 mg 50 mg PO DAILY 12/18/23 12/17/23 History tablet,extended release 24 hr nitroglycerin 0.4 mg sublingual 0.4 mg sublingual PRN PRN chest 12/18/23 Unknown History tablet pain rosuvastatin 20 mg tablet 20 mg PO QPM 12/18/23 Unknown History Allergy/AdvReac Type Severity Reaction Status Date / Time cephalexin (From Keflex) Allergy Rash Verified 12/18/23 05:38 ciprofloxacin (From Cipro) Allergy Rash Verified 12/18/23 05:38 Penicillins Allergy Rash Verified 12/18/23 05:38 Sulfa (Sulfonamide Allergy Rash Verified 12/18/23 05:38 Antibiotics) other (Unknown to patient) Surgical History Hx of CABG History of carpal tunnel release History of hysterectomy History of partial colectomy Social History (Updated 12/18/23 @ 09:[address] Pippa Urias DO) household members: family housing: house Smoking Status: Former smoker alcohol intake: never substance use type: does not use ROS Constitutional Constitutional: Reports weakness; Denies anorexia, change in weight, chills, fatigue, fever(s), malaise, night sweats or other Eyes Eyes: Denies blurry vision, change in eye color, change in vision, discharge from eye(s), double vision, erythema, eye pain, loss of vision or other ENT HEENT: Denies abnormal hearing, dysphagia, ear pain, epistaxis, headache(s), hearing loss, nasal congestion, nasal discharge, post nasal drip, sinus pressure, sore throat or other Cardiovascular Cardiovascular: Reports chest pain, dyspnea on exertion and syncope; Denies claudication, edema, lightheadedness, orthopnea, palpitations, paroxysmal nocturnal dyspnea, rapid heart rate or other Respiratory/Chest Respiratory/Chest: Reports dyspnea and shortness of breath with exertion; Denies cough, excessive phlegm production, hemoptysis, productive cough, shortness of breath at rest, wheezing or other Gastrointestinal Gastrointestinal: Denies abdominal pain, coffee ground emesis, constipation, diarrhea, dyspepsia, hematemesis, hematochezia, loose stools, melena, nausea, vomiting or other Genitourinary Genitourinary: Denies burning urination, difficulty urinating, dysuria, hematuria, nocturia, urinary frequency, urinary hesitancy, urinary incontinence, urinary urgency or other Musculoskeletal Musculoskeletal: Denies arthralgias, back pain, joint pain, joint stiffness, joint swelling, myalgias, neck pain or other Neurologic Neurologic: Denies abnormal gait, abnormal speech, confusion, disequilibrium, dizziness, focal weakness, headache(s), numbness, paresthesias, seizure-like activity, seizures, syncope, tingling, tremor(s) or other Psychiatric Psychiatric: Denies anxiety, depression, homicidal ideation, suicidal ideation or other Endocrine Endocrinology: Denies change in body appearance, cold intolerance, excessive sweating, heat intolerance, polydipsia, polyuria or other Hematologic/Lymphatic Hematologic/Lymphatic: Denies anemia, easy bleeding, easy bruising, lymphadenopathy or other Allergic/Immunologic Allergic/Immunologic: Denies rhinitis, hives, eczemia, asthma or other Vital Signs Vital Signs Vital Signs: 12/18/23 05:37 12/18/23 05:37 12/18/23 05:43 Temperature 98.8 F Temperature Source Oral Pulse Rate 116 H Respiratory Rate 22 H Respiratory Effort Short of Breath Blood Pressure 118/91 H Blood Pressure Mean 100 Pulse Ox 84 91 Oxygen Delivery Method Room Air Room Air Nasal Cannula Oxygen Flow Rate (L/min) 2 12/18/23 05:49 12/18/23 05:58 12/18/23 07:00 Temperature Temperature Source Pulse Rate 100 91 Respiratory Rate 18 21 H Respiratory Effort Blood Pressure 118/73 Blood Pressure Mean 84 Pulse Ox 90 Oxygen Delivery Method Nasal Cannula Oxygen Flow Rate (L/min) 3 12/18/23 08:00 12/18/23 09:00 12/18/23 09:01 Temperature Temperature Source Pulse Rate 96 92 Respiratory Rate 28 H 41 H Respiratory Effort Blood Pressure 90/64 148/120 H Blood Pressure Mean 68 130 Pulse Ox 83 95 Oxygen Delivery Method Oxygen Flow Rate (L/min) Weight Weight: 83.7 kg Body Mass Index (BMI) 30.7 Physical Exam Const alert, oriented x3, no apparent distress and well nourished; Negative for average body habitus or healthy appearing Constitutional Narrative: Obese, disheveled, older, white female, sitting up in bed, son at bedside, appears mildly uncomfortable but not toxic, son at bedside General Appearance: cooperative HEENT normocephalic, head/scalp atraumatic, hearing grossly normal bilaterally and moist oral mucous membranes HEENT Narrative: Dentures in place, Mallampati 2, no thrush Eyes PERRL, EOMs intact bilaterally and conjunctivae normal Eyes Narrative: No scleral icterus Neck no lymphadenopathy and supple Neck Narrative: Trachea midline, no thyroid enlargement Resp normal respiratory effort, no retractions, no use of accessory muscles and clear to auscultation bilaterally Resp Narrative: Diminished but clear Auscultation: Negative for rales, rhonchi or wheezes Cardio regular rate, regular rhythm, S1 normal heart sound, S2 normal heart sound, no murmurs, no rub, no gallops and no clicks GI normal to inspection, nondistended, normoactive bowel sounds, soft to palpation and non-tender Extremity no clubbing, cyanosis or edema Extremity Narrative: Pedal and radial pulses are 2+, significant onychomycosis bilateral lower extremities Neuro oriented x3, moves all extremities and no focal motor deficits Speech: speech normal Psych Psych Narrative: Affect is slightly flat and patient seems mildly anxious, eye contact is good Results Lab / Micro Data 12/18/23 05:57 12/18/23 05:57 Labs: Laboratory Results - last 24 hr 12/18/23 05:50: PT 13.5, INR 1.0, APTT 26.9, D-Dimer Quant (PE/DVT) 5.32 H* 12/18/23 05:57: WBC 8.3, RBC 4.69, Hgb 14.5, Hct 45.0, MCV 95.9, MCH 30.9, MCHC 32.2, RDW Std Deviation 46.5 H, RDW Coeff of [place] 13.4, Plt Count 303, MPV 8.7, Immature Gran % (Auto) 0.400, Neut % (Auto) 58.1, Lymph % (Auto) 31.7, [place] % (Auto) 7.7, Eos % (Auto) 1.6, Baso % (Auto) 0.5, Absolute Neuts (auto) 4.9, Absolute Lymphs (auto) 2.64, Nucleated RBC % 0, Sodium 137, Potassium 3.0 L, Chloride 103, Carbon Dioxide 26.0, Anion Gap 8, BUN 10, Creatinine 1.16 H, Estim Creat Clear Calc 44.77, Est GFR (MDRD) Af Amer 59 L, Est GFR (MDRD) Non-Af 48 L, BUN/Creatinine Ratio 8.6 L, Glucose 139 H, Calcium 8.9, Troponin I High Sens 36 Micro: Microbiology 12/18/23 05:57 Mucosa - Nasopharyngeal SARS-CoV-2, Influenza & RSV (PCR) - Final Rhythm Strip Rhythm Strip: Sinus Tach Rate: 102 Ectopy: None Imaging Radiology Impression Brain CT 12/18/23 05:49 IMPRESSION: 1. Mild increased size of the CSF density lesion now measures 1 cm in the right inferior capsuloganglionic region. This may represent a prominent [place]chow Ian space versus old lacunar infarct. 2. Mild generalized atrophy. Mild low density bilaterally in the deep white matter. This likely represents chronic small vessel ischemic changes in the deep white matter. Electronically Signed: Landon Paz MD at 6:34 EDT , Chest X-Ray 12/18/23 06:15 IMPRESSION: No acute cardiopulmonary abnormality. Electronically Signed: Landon Paz MD at 6:35 EDT , Chest CTA 12/18/23 07:49 IMPRESSION: Acute pulmonary embolus in the right distal main pulmonary artery. Additional segmental and subsegmental pulmonary emboli throughout all lobes of both lungs. Flattening of the interventricular septum of the heart, consistent with early right heart strain. No thoracic aortic aneurysm or dissection. Atherosclerosis and coronary artery disease, status post sternotomy and coronary artery bypass. No pulmonary infiltrates or pleural effusions. Stable emphysema. Fatty liver. Stable left adrenal nodule. N.B. : The above Results were Read Back by Mingo Prakash MD to Chet Carson MD, and understanding confirmed on 12/18/2023 08:30:07 (ET). Electronically Signed: Mingo Prakash MD at 8:31 EDT , ADDENDUM: 12/18/23 0838 IMPRESSION: Acute pulmonary embolus in the right distal main pulmonary artery. Additional segmental and subsegmental pulmonary emboli throughout all lobes of both lungs. Flattening of the interventricular septum of the heart, consistent with early right heart strain. No thoracic aortic aneurysm or dissection. Atherosclerosis and coronary artery disease, status post sternotomy and coronary artery bypass. No pulmonary infiltrates or pleural effusions. Stable emphysema. Fatty liver. Stable left adrenal nodule. N.B. : The above Results were Read Back by Mingo Prakash MD to Chet Carson MD, and understanding confirmed on 12/18/2023 08:30:07 (ET). Electronically Signed: Mingo Prakash MD at 8:31 EDT , Assessment & Plan Assessment/Plan (1) Pulmonary emboli: (2) Right-sided chest wall pain: (3) Syncope and collapse: (4) Hypokalemia: (5) Hypoxemia: (6) Elevated serum creatinine: PLAN: Plan Chest pain secondary to acute pulmonary emboli -CTA of the chest shows a right distal main pulmonary artery embolus with early right heart strain and no other acute findings -Start heparin drip -Plan to transition to DOAC at discharge--> will now need lifelong anticoagulation with this being her second event -Social work/case management consultation for assistance with discharge planning -Check echocardiogram -Cycle cardiac enzymes--> initial troponin was 36 -Unable to assess BNP as analyzer is down -Consult vascular surgery--> discussion initiated by emergency department Syncope -Secondary to the above -echocardiogram pending -Cardiac enzymes cycled -Monitor on telemetry Acute hypoxia -84% on room air and 91% on 2 L nasal cannula -Continue supplemental oxygen as needed to keep oxygen sat equal to or greater than 89% -As needed nebulizers with history of tobacco abuse -Likely related to acute PE -Wean oxygen as able -Will need ambulatory pulse ox prior to discharge Acute hypokalemia -40 mill equivalents p.o. potassium given -Recheck in a.m. -Check a.m. magnesium and phosphorus level Elevated serum creatinine -mild and currently 1.16 -Baseline serum creatinine appears to run between 0.7 and 1 -No intervention needed at this time -Repeat lab in a.m. History of pulmonary embolus -patient had a provoked DVT greater than 10 years ago after a hip replacement PAD -Continue home cilostazol CAD essential Hypertension/hyperlipidemia -Previous coronary bypass graft surgery at [facility] in 2016 -Continue home metoprolol -As needed hydralazine available for systolic pressure greater than 160 -Patient has been recommended to be on a statin however has declined Insomnia -Continue home trazodone DVT prophylaxis -Heparin drip as above CODE STATUS -Full code for now and she would like to discuss further with her son Charges/Coding Visit Charges Inpatient E&M: 55212 Init Hosp L2
[2023-12-18] MEDS: Metoprolol(XL)Succ 50 MG Tablet PO (11:51)
[2023-12-18] MEDS: Cilostazol 50 MG Tablet 100 MG PO ×2 (11:52→21:38)
[2023-12-18 11:54] LABS: Troponin-I HS 48 pg/mL (3.0-54.0)
[2023-12-18 12:27] LABS: Troponin-I HS 48 pg/mL (3.0-54.0)
--- NOTE | 2023-12-18 13:37 | EX.PCM.CON.S ---
Assessment & Plan Assessment/Plan (1) Pulmonary emboli: QUALIFIERS: Pulmonary embolism type: multiple subsegmental (without acute cor pulmonale) Qualified Code(s): I26.94 - Multiple subsegmental pulmonary emboli without acute cor pulmonale PLAN: -CTA images reviewed, bilateral multiple subsegmental PE, distal right pulm artery with moderate clot burden, RV/LV ratio 0.8 -trop x 2 normal -no BNP due to machine non-functional -echo with no RV strain -mild tachycardia, intermittent, BP stable, on 5L -no imaging or biomarker indication for embolectomy -clinically stable, though does require moderate O2 support -cont anticoagulation; transition to PO agent tomorrow -will obtain venous duplex HPI Consult Data Date of Consult: 12/18/23 HPI Narrative HPI Narrative: ISABEL GAITAN, is a 73 F who presents with 2-3 days CP, SOB, dizziness/weakness with ambulating with possible syncope according to son. Was found to have bilateral PE and is admitted on heparin drip. Prior PE after hip surgery several years ago, completed anticoagulation therapy and had no further issues until now. No recent illness/injury/change in activity. No significant family history of VTE. No melena/hematochezia/hematuria/recent weight loss. Does have COPD, uses rescue inhaler fairly frequently, more so over past month then a lot last few days without relief. [facility] Medical History History of tobacco abuse Hyperlipidemia Chronic interstitial lung disease Coronary artery disease Fracture of toe Peripheral arterial disease Hypertension Home Medications ?Medication ?Instructions ?Recorded ?Last Taken ?Type trazodone 100 mg tablet 300 mg PO QHS PRN Sleep 02/06/16 12/17/23 History cilostazol 100 mg tablet 100 mg PO BID 12/13/20 12/17/23 History albuterol sulfate 90 mcg/actuation 2 puff inhalation Q4H PRN 12/18/23 12/18/23 History aerosol inhaler shortness of breath or wheezing metoprolol succinate 50 mg 50 mg PO DAILY heart rate 12/18/23 12/17/23 History tablet,extended release 24 hr nitroglycerin 0.4 mg sublingual 0.4 mg sublingual PRN PRN chest 12/18/23 Unknown History tablet pain rosuvastatin 20 mg tablet 20 mg PO QPM cholesterol 12/18/23 Unknown History Allergy/AdvReac Type Severity Reaction Status Date / Time cephalexin (From Keflex) Allergy Rash Verified 12/18/23 05:38 ciprofloxacin (From Cipro) Allergy Rash Verified 12/18/23 05:38 Penicillins Allergy Rash Verified 12/18/23 05:38 Sulfa (Sulfonamide Allergy Rash Verified 12/18/23 05:38 Antibiotics) Family History other Surgical History Hx of CABG History of carpal tunnel release History of hysterectomy History of partial colectomy Social History household members: family housing: house Smoking Status: Former smoker alcohol intake: never substance use type: does not use ROS Constitutional Constitutional: Reports weakness; Denies chills, fever(s), frequent falls or lethargy Eyes Eyes: Denies blind spots, change in vision or loss of vision ENT HEENT: Denies bleeding gums, hoarseness or sore throat Cardiovascular Cardiovascular: Reports chest pain, dyspnea at rest, dyspnea on exertion and syncope; Denies abdominal pain, bluish discoloration of hand/feet, chest pain with activity, claudication, cold extremities, cyanosis, erythema on extremities, irregular heart rhythm, leg ulcers, numbness in extremities or weakness in extremities Respiratory/Chest Respiratory/Chest: Denies cough, excessive phlegm production, shortness of breath at rest, shortness of breath with exertion or wheezing Gastrointestinal Gastrointestinal: Denies anorexia, change in stool character, constipation, diarrhea, melena or rectal bleeding Genitourinary Genitourinary: Denies dysuria or hematuria Musculoskeletal Musculoskeletal: Denies abnormal gait Integumentary Integumentary: Denies erythema, non-healing lesions or wounds Neurologic Neurologic: Denies abnormal speech, focal weakness, headache(s), loss of vision, numbness, paresthesias or sensory deficit Hematologic/Lymphatic Hematologic/Lymphatic: Denies easy bleeding, easy bruising or lymphadenopathy Lab / Micro Data 12/18/23 05:57 12/18/23 05:57 Labs: Laboratory Results - last 24 hr 12/18/23 05:50: PT 13.5, INR 1.0, APTT 26.9, D-Dimer Quant (PE/DVT) 5.32 H* 12/18/23 05:57: WBC 8.3, RBC 4.69, Hgb 14.5, Hct 45.0, MCV 95.9, MCH 30.9, MCHC 32.2, RDW Std Deviation 46.5 H, RDW Coeff of Pelon 13.4, Plt Count 303, MPV 8.7, Immature Gran % (Auto) 0.400, Neut % (Auto) 58.1, Lymph % (Auto) 31.7, [place] % (Auto) 7.7, Eos % (Auto) 1.6, Baso % (Auto) 0.5, Absolute Neuts (auto) 4.9, Absolute Lymphs (auto) 2.64, Nucleated RBC % 0, Sodium 137, Potassium 3.0 L, Chloride 103, Carbon Dioxide 26.0, Anion Gap 8, BUN 10, Creatinine 1.16 H, Estim Creat Clear Calc 44.77, Est GFR (MDRD) Af Amer 59 L, Est GFR (MDRD) Non-Af 48 L, BUN/Creatinine Ratio 8.6 L, Glucose 139 H, Calcium 8.9, Troponin I High Sens 36 12/18/23 11:20: Troponin I High Sens 48 12/18/23 11:57: Troponin I High Sens 48 Micro: Microbiology 12/18/23 05:57 Mucosa - Nasopharyngeal SARS-CoV-2, Influenza & RSV (PCR) - Final Rhythm Strip Rhythm Strip: Sinus Tach Rate: 102 Ectopy: None Imaging Radiology Impression Brain CT 12/18/23 05:49 IMPRESSION: 1. Mild increased size of the CSF density lesion now measures 1 cm in the right inferior capsuloganglionic region. This may represent a prominent Virchow Ian space versus old lacunar infarct. 2. Mild generalized atrophy. Mild low density bilaterally in the deep white matter. This likely represents chronic small vessel ischemic changes in the deep white matter. Electronically Signed: Landon Paz MD at 6:34 EDT , Chest X-Ray 12/18/23 06:15 IMPRESSION: No acute cardiopulmonary abnormality. Electronically Signed: Landon Paz MD at 6:35 EDT , Chest CTA 12/18/23 07:49 IMPRESSION: Acute pulmonary embolus in the right distal main pulmonary artery. Additional segmental and subsegmental pulmonary emboli throughout all lobes of both lungs. Flattening of the interventricular septum of the heart, consistent with early right heart strain. No thoracic aortic aneurysm or dissection. Atherosclerosis and coronary artery disease, status post sternotomy and coronary artery bypass. No pulmonary infiltrates or pleural effusions. Stable emphysema. Fatty liver. Stable left adrenal nodule. N.B. : The above Results were Read Back by Mingo Prakash MD to Chet Carson MD, and understanding confirmed on 12/18/2023 08:30:07 (ET). Electronically Signed: Mingo Prakash MD at 8:31 EDT , ADDENDUM: 12/18/23 0838 IMPRESSION: Acute pulmonary embolus in the right distal main pulmonary artery. Additional segmental and subsegmental pulmonary emboli throughout all lobes of both lungs. Flattening of the interventricular septum of the heart, consistent with early right heart strain. No thoracic aortic aneurysm or dissection. Atherosclerosis and coronary artery disease, status post sternotomy and coronary artery bypass. No pulmonary infiltrates or pleural effusions. Stable emphysema. Fatty liver. Stable left adrenal nodule. N.B. : The above Results were Read Back by Mingo Prakash MD to Chet Carson MD, and understanding confirmed on 12/18/2023 08:30:07 (ET). Electronically Signed: Mingo Prakash MD at 8:31 EDT , Echocardiogram 12/18/23 09:37 Interpretation Summary The left ventricular ejection fraction is 55 %. Normal LV size. D shaped septum in systole and diastole. Pulmonary artery systolic pressure is 100 mmHg. Severe pulmonary hypertension. Ordering Physician: Pippa Urias Referring Physician: martha camacho Performed By: Kamryn Nieves RCS Charges/Coding Visit Charges Inpatient E&M: 48217 Init Hosp L3
--- NOTE | 2023-12-18 13:48 | VDLE_ITS ---
Reason For Study: PULMONARY EMBOLISM RIGHT LEFT GSV is normal. GSV is normal. CFV is compressible, spontaneous, phasic, CFV is compressible, spontaneous, phasic, competent and demonstrates normal competent, and demonstrates normal augmentation. augmentation. FV is compressible, spontaneous, phasic, FV is compressible, spontaneous, phasic, competent and demonstrates normal competent and demonstrates normal augmentation. augmentation. POP V is compressible, spontaneous, phasic, POP V is compressible, spontaneous, phasic, competent and demonstrates normal competent and demonstrates normal augmentation. augmentation. T/P Trunk is compressible. T/P Trunk is compressible. PTV is compressible. PTV is compressible. RT PerV is compressible. LT PerV is compressible. Procedure R[place] FLOW noted in LEFT POP V. This is a venous duplex using B-mode, color flow and spectral Doppler. Exam performed in department. A preliminary report was called and/or faxed to [facility]. VL/Venous Duplex US - Scot Extrem Interpretation Summary Deep veins of the bilateral lower extremities are patent and compressible segme ntally. There is no evidence of bilateral lower extremity deep vein thrombosis. The bilateral great saphenous veins appear patent and compressible segmentally. Ordering Physician: Ernie Graves Referring Physician: Domo Adhikari Performed By: Court Singleton, NEVILLE, RVT
[2023-12-18 15:44] LABS: Partial Thromboplast Time 57.8 Seconds (24.1-36.2)
[2023-12-18] MEDS: Ensure Plus High Protein 120 ML LIQUID PO (16:11)
--- NOTE | 2023-12-18 18:14 | NURSING ---
Pt educated on safety when ambulating to use call light if needing assistance and using hospital gripper socks. Pt refusing to wear and verbalizes risks and understanding.
[2023-12-18] MEDS: traZODone 100 MG Tablet 300 MG PO (21:38)
[2023-12-18 21:44] LABS: Partial Thromboplast Time 57.4 Seconds (24.1-36.2)
[2023-12-19] VITALS (9 sets, daily range): BP systolic 105–149; BP diastolic 62–89; PULSE 73–88; RESP 16–20; TEMP 36–36.7; O2SAT 84–96
[2023-12-19] MEDS: Albuterol 2.5 MG/3 ML VIAL.NEB. INHALATION (03:53)
[2023-12-19 07:01] LABS: Absolute Lymphocyte Count 1.95 X10^3/uL (0.83-4.51); Basophil# 0.05 X10^3/uL; Basophil% 0.6 % (0-1); Eosinophil# 0.14 X10^3/uL; Eosinophils% 1.8 % (0-5); Hematocrit 42.8 % (37-47); Lymphocyte # 1.95 X10^3/ul (0.83-4.51); Lymphocyte % 25.1 % (19-41); Mean Corp Hgb Conc 32.7 g/dL (32-36); Mean Corpuscular Hgb 31.1 pg (27.0-32.0); Mean Corpuscular Volume 95.1 fL (81-99); Mean Platelet Vol. 8.9 fl (6.2-12.0); Monocyte# 0.61 X10^3/uL; Monocyte% 7.8 % (0-10); NRBC Flagged by Analyzer 0 % (0-5); Neutrophil # 4.99 X10^3/uL (2.7-7.7); Neutrophil % 64.2 % (47-70); Platelet Count 306 K/mm3 (150-450); RBC Distribution Width CV 13.4 % (11.6-14.6); RBC Distribution Width SD 46.5 fl (35.1-43.9); White Blood Count 7.8 K/mm3 (4.4-11.0)
[2023-12-19 07:06] LABS: Partial Thromboplast Time 65.9 Seconds (24.1-36.2)
[2023-12-19 07:24] LABS: ALB/GLOB Ratio 0.6 RATIO (0.9-2.4); AST(SGOT) 14 U/L (15-37); Alanine Aminotransfer ALT/SGPT 11 U/L (13-56); Albumin, Serum 2.6 g/dL (3.2-5.0); Alkaline Phosphatase 79 U/L (45-117); Anion Gap 7 (5-15); BUN 11 mg/dL (7-18); BUN/Creat Ratio 11.9 RATIO (10-20); Calcium,Total 8.7 mg/dL (8.5-10.1); Chloride 106 mmol/L (98-107); Creatinine, Serum 0.92 mg/dL (0.55-1.02); EST Glomerular Filtration Rate 63 mL/min (>60); Est Glom Filt Rate - Afr Amer 76 mL/min (>60); Estimated Creatinine Clearance 56.02 ml/min; Globulin 4.2 g/dL (2.2-4.2); Glucose 111 mg/dL (74-106); Magnesium 1.9 mg/dL (1.6-2.6); Potassium 3.6 mmol/L (3.5-5.1); Protein, Total 6.8 g/dL (6.4-8.2); Sodium Level 137 mmol/L (136-145)
[2023-12-19] MEDS: Metoprolol(XL)Succ 50 MG Tablet PO (09:25)
[2023-12-19] MEDS: Furosemide 40 MG/4 ML Vial IV ×2 (09:25→17:08)
[2023-12-19] MEDS: APIXABAN 5 MG TABLET 10 MG PO ×2 (09:25→21:45)
[2023-12-19] MEDS: Cilostazol 50 MG Tablet 100 MG PO ×2 (09:27→21:45)
--- NOTE | 2023-12-19 10:05 | CASEMGMT ---
MARISA STARKS Face to Face with patient for initial transition planning/care coordination assessment. RN CM introduced self and role at [facility]. Patient lying in bed, alert and oriented, son at bedside. Patient willing to participate in assessment and is able to answer all questions appropriately. Care providers, pharmacy, and demographics verified. PCP: Zeynep Specialists: none Preferred Pharmacy: [facility] Insurance[facility] Benefit: yes Living Will/HPOA: none, patient interested in completing, SW updated LNOK: son, has other children Living Arrangements: Patient lives with son in a first floor apartment with 1 step to enter. Patient states she is independent at home. Transportation: self, son DME/HHC: Patient has cane and wheelchair. May benefit from walker at discharge. Currently on oxygen will monitor for home oxygen at discharge. Patient prefers [employer] for DME. No previous SNF. Patient has had [facility] in the past. Patient wishes to discharge home, denies need for home health at this time. Patient states she has no further needs or concerns at this time. CM to follow for discharge planning needs that may arise. Disposition Plan: Patient to discharge home with family support and follow-up plans in place. Melissa AGUERO, RN, CM
--- NOTE | 2023-12-19 11:22 | PCM.PN.HOSP ---
Reason for Visit Reason for Visit: Shortness of breath/chest pain Subjective Subjective Patient with diarrhea after admission so C. difficile and enteric panel are pending. She did indicate today she been having this for the last day or so at home prior to presentation but really got worse after presentation here. Still complaining of shortness of breath and chest pain especially pleuritic chest pain. We did discuss that this is going to be not an ongoing thing for a while due to the extensive amount of clot she has. I did discuss with her that she will likely need to go home with oxygen. Objective Data Objective Data Vital Signs: Vital Signs Temp Pulse Resp BP Pulse Ox O2 Del Method O2 Flow Rate 98.1 F 83 20 H 105/66 94 Nasal Cannula 5 12/19/23 09:16 12/19/23 09:25 12/19/23 09:16 12/19/23 09:16 12/19/23 09:16 12/19/23 09:30 12/19/23 09:30 Oxygen Flow Rate (L/min) 5 Oxygen Delivery Method Nasal Cannula Weight: 82.4 kg Body Mass Index (BMI) 30.2 Intake & Output: Intake and Output for Last 24 Hours 12/17/23 12/18/23 12/19/23 23:59 23:59 23:59 Intake Total 970 / 970 240.83 / 240.83 Balance 970 / 970 240.83 / 240.83 Lab / Micro Data 12/19/23 06:07 12/19/23 06:07 Labs: Laboratory Results - last 24 hr 12/18/23 11:20: Troponin I High Sens 48 12/18/23 11:57: Troponin I High Sens 48 12/18/23 15:25: APTT 57.8 H 12/18/23 21:25: APTT 57.4 H 12/19/23 06:07: WBC 7.8, RBC 4.50, Hgb 14.0, Hct 42.8, MCV 95.1, MCH 31.1, MCHC 32.7, RDW Std Deviation 46.5 H, RDW Coeff of [place]on 13.4, Plt Count 306, MPV 8.9, Immature Gran % (Auto) 0.500, Neut % (Auto) 64.2, Lymph % (Auto) 25.1, [place] % (Auto) 7.8, Eos % (Auto) 1.8, Baso % (Auto) 0.6, Absolute Neuts (auto) 5.0, Absolute Lymphs (auto) 1.95, Nucleated RBC % 0, APTT 65.9 H, Sodium 137, Potassium 3.6, Chloride 106, Carbon Dioxide 24.0, Anion Gap 7, BUN 11, Creatinine 0.92, Estim Creat Clear Calc 56.02, Est GFR (MDRD) Af Amer 76, Est GFR (MDRD) Non-Af 63, BUN/Creatinine Ratio 11.9, Glucose 111 H, Calcium 8.7, Phosphorus 3.0, Magnesium 1.9, Total Bilirubin 0.50, AST 14 L, ALT 11 L, Alkaline Phosphatase 79, Total Protein 6.8, Albumin 2.6 L, Globulin 4.2, Albumin/Globulin Ratio 0.6 L Micro: Microbiology 12/18/23 05:57 Mucosa - Nasopharyngeal SARS-CoV-2, Influenza & RSV (PCR) - Final Radiography Diagnostic Testing: Radiology Impression Echocardiogram 12/18/23 09:37 Interpretation Summary The left ventricular ejection fraction is 55 %. Normal LV size. D shaped septum in systole and diastole. Pulmonary artery systolic pressure is 100 mmHg. Severe pulmonary hypertension. Ordering Physician: Pippa Urias Referring Physician: martha camacho Performed By: Kamryn Nieves RCS Rhythm Strip Rhythm Strip: Sinus Tach Rate: 102 Ectopy: None Physical Exam Const alert, oriented x3, no apparent distress and well nourished; Negative for average body habitus or healthy appearing Constitutional Narrative: Obese, disheveled, older, white female, sitting up in bed, son at bedside, appears comfortable, nontoxic, nursing at bedside General Appearance: cooperative HEENT normocephalic, head/scalp atraumatic, hearing grossly normal bilaterally and moist oral mucous membranes HEENT Narrative: Dentures in place, Mallampati is 2, no thrush Eyes PERRL, EOMs intact bilaterally and conjunctivae normal Eyes Narrative: No scleral icterus Neck no lymphadenopathy and supple Neck Narrative: Trachea midline, no thyroid enlargement Resp normal respiratory effort, no retractions, no use of accessory muscles and clear to auscultation bilaterally Resp Narrative: Diminished but clear Auscultation: Negative for rales, rhonchi or wheezes Cardio regular rate, regular rhythm, S1 normal heart sound, S2 normal heart sound, no murmurs, no rub, no gallops and no clicks GI soft to palpation and non-tender GI Narrative: No distention, bowel sounds are slightly hyperactive Extremity no clubbing, cyanosis or edema Extremity Narrative: Pedal pulses are 2+ with no edema Neuro oriented x3, moves all extremities and no focal motor deficits Speech: speech normal Psych affect normal Psych Narrative: More interactive today, not anxious, eye contact is good, very pleasant Assessment & Plan Assessment/Plan (1) Pulmonary emboli: QUALIFIERS: Pulmonary embolism type: multiple subsegmental (without acute cor pulmonale) Qualified Code(s): I26.94 - Multiple subsegmental pulmonary emboli without acute cor pulmonale (2) Right-sided chest wall pain: (3) Syncope and collapse: (4) Hypokalemia: (5) Hypoxemia: (6) Elevated serum creatinine: PLAN: Plan Chest pain secondary to acute pulmonary emboli -CTA of the chest shows a right distal main pulmonary artery embolus with early right heart strain and no other acute findings -Echocardiogram showed an EF of 55% with a normal LV size, D-shaped septum in systole and diastole with pulmonary artery pressures of 100 mmHg -With no RV strain, normal troponin and only mild tachycardia that was intermittent there is no indication for embolectomy per discussion with vascular surgery -Discontinue heparin drip and start Eliquis 10 mg p.o. twice daily day 1 of 7--> will then transition to 5 mg p.o. twice daily indefinitely as this is a recurrent embolic event for her -Vascular surgery is following-appreciate input -Will ensure patient has pulmonary follow-up after discharge Syncope -Secondary to the above -Cardiac enzymes were unremarkable -Monitor on telemetry Acute hypoxic respiratory failure secondary to acute submassive pulmonary emboli - oxygenation is worsened and patient is now on 5 L nasal cannula -Continue supplemental oxygen as needed to keep oxygen sat equal to or greater than 89% -Wean as able -Check ambulatory pulse ox prior to discharge I highly anticipate patient will need supplemental oxygen at the time of discharge -As needed nebulizers with history of tobacco abuse -Lasix 40 mg IV push twice daily with markedly elevated pulmonary pressures Acute hypokalemia -resolved but only 3.6 -With diuresis we will give another 40 mill equivalents today Diarrhea -Etiology is unclear -Check C. difficile and enteric panel -If infectious workup is negative will start as needed loperamide Elevated serum creatinine -Resolved History of pulmonary embolus -patient had a provoked DVT greater than 10 years ago after a hip replacement PAD -Continue home cilostazol CAD essential Hypertension/hyperlipidemia -Previous coronary bypass graft surgery at [facility] in 2016 -Continue home metoprolol -As needed hydralazine available for systolic pressure greater than 160 -Patient has been recommended to be on a statin however has declined Insomnia -Continue home trazodone DVT prophylaxis -Eliquis 10 mg p.o. twice daily CODE STATUS -Full code Charges/Coding Visit Charges Inpatient E&M: 51743 [facility] Hosp L3
--- NOTE | 2023-12-19 13:23 | CASEMGMT ---
MARISA STARKS NOTE: MARISA STARKS to room. Pt resting in bed. 2 sons @ bedside. Introduced self and role. Eliquis: Per Dr Urias, pt to dc home on Eliquis. Provided w/30-day free trial offer card and instructed on use. Made aware to f/u with PCP if refills are not affordable. Pt and family aware of importance of taking medication. CCN/Pt Link: Discussed both CCN and Pt Link. Pt does not want CCN, as she does not like visitors, but family interested in Pt Link and pt agreeable. Referral placed. Pulse ox: Pt does not have a pulse ox. Recommended she get one. Son states they can afford to purchase one and he is aware of locations that sell these. Home O2: Instructed on Home O2 set up, should pt qualify for it @ dc. Pt and family aware of importance of contacted DME co before leaving the hospital so arrangements can be made for delivery of further O2 @ home before portable O2 tank runs out. They voice understanding. WW: Initially pt interested in getting WW. MARISA STARKS reviewed therapy's notes and also spoke w/Dana in therapy. She states pt did well ambulating w/out a WW. MARISA STARKS made pt aware. She states she also does not feel she needs one. Pt and sons deny having any further discharge needs/concerns. Luis AGUERO RN, CM
--- NOTE | 2023-12-19 13:48 | PCM.PN.SRG ---
Subjective Subjective Doing well. Less SOB, still with chest discomfort. No bleeding conserns. Objective Data Objective Data A&O x 3, NAD RRR Resp non labored, no accessory muscle use, speaks comfortably Vital Signs: Vital Signs Temp Pulse Resp BP Pulse Ox O2 Del Method O2 Flow Rate 98.1 F 83 20 H 105/66 94 Nasal Cannula 5 12/19/23 09:16 12/19/23 09:25 12/19/23 09:16 12/19/23 09:16 12/19/23 09:16 12/19/23 09:30 12/19/23 09:30 Oxygen Flow Rate (L/min) 5 Oxygen Delivery Method Nasal Cannula Weight: 181 lb 10.574 oz Body Mass Index (BMI) 30.2 Intake & Output: Intake and Output for Last 24 Hours 12/17/23 12/18/23 12/19/23 23:59 23:59 23:59 Intake Total 970 / 970 240.83 / 240.83 Balance 970 / 970 240.83 / 240.83 Lab / Micro Data 12/19/23 06:07 12/19/23 06:07 Labs: Laboratory Results - last 24 hr 12/18/23 15:25: APTT 57.8 H 12/18/23 21:25: APTT 57.4 H 12/19/23 06:07: WBC 7.8, RBC 4.50, Hgb 14.0, Hct 42.8, MCV 95.1, MCH 31.1, MCHC 32.7, RDW Std Deviation 46.5 H, RDW Coeff of Pelon 13.4, Plt Count 306, MPV 8.9, Immature Gran % (Auto) 0.500, Neut % (Auto) 64.2, Lymph % (Auto) 25.1, [place] % (Auto) 7.8, Eos % (Auto) 1.8, Baso % (Auto) 0.6, Absolute Neuts (auto) 5.0, Absolute Lymphs (auto) 1.95, Nucleated RBC % 0, APTT 65.9 H, Sodium 137, Potassium 3.6, Chloride 106, Carbon Dioxide 24.0, Anion Gap 7, BUN 11, Creatinine 0.92, Estim Creat Clear Calc 56.02, Est GFR (MDRD) Af Amer 76, Est GFR (MDRD) Non-Af 63, BUN/Creatinine Ratio 11.9, Glucose 111 H, Calcium 8.7, Phosphorus 3.0, Magnesium 1.9, Total Bilirubin 0.50, AST 14 L, ALT 11 L, Alkaline Phosphatase 79, Total Protein 6.8, Albumin 2.6 L, Globulin 4.2, Albumin/Globulin Ratio 0.6 L Micro: Microbiology 12/19/23 09:50 Stool Enteric Bacteriology - Final 12/19/23 09:50 Stool Clostridioides difficile (PCR) - Final 12/18/23 05:57 Mucosa - Nasopharyngeal SARS-CoV-2, Influenza & RSV (PCR) - Final Rhythm Strip Rhythm Strip: Sinus Tach Rate: 102 Ectopy: None Assessment & Plan Assessment/Plan (1) Pulmonary emboli: QUALIFIERS: Pulmonary embolism type: multiple subsegmental (without acute cor pulmonale) Qualified Code(s): I26.94 - Multiple subsegmental pulmonary emboli without acute cor pulmonale PLAN: -tolerating oral anticoagulation -plans for diuresis underway -await venous duplex; ok to DC after completed from vascular standpoint
--- NOTE | 2023-12-19 14:46 | CASEMGMT ---
Social Work- SW met with pt who stated that she wished to complete HCPOA only. PT named son, Landon, as primary agent and son, Santosh, as alternate agent. Pt was provided with original and two copies for her agents. A copy was placed on pt chart. FRANSICO Rosado
--- NOTE | 2023-12-19 15:12 | CASEMGMT ---
Social Work- SW completed AD with pt and placed on chart.Son, Landon, named primary HCPOA. Son, Santosh, named alternative HCPOA. FRANSICO Rosado
[2023-12-19] MEDS: Potassium Chloride Oral Soln 20 MEQ/15 ML UDC 40 MEQ PO (15:19)
[2023-12-19] MEDS: Ondansetron 4 MG/2 ML Vial IV (16:47)
[2023-12-19] MEDS: Loperamide 2 MG Capsule PO (17:08)
[2023-12-20] VITALS (7 sets, daily range): BP systolic 105–113; BP diastolic 68–83; PULSE 72–80; RESP 16; TEMP 36.1–36.6; O2SAT 85–94
[2023-12-20] MEDS: Acetaminophen 325 MG Tablet 650 MG PO (01:59)
--- NOTE | 2023-12-20 02:00 | NURSING ---
when doing rounds, patient was found to have taken her oxygen off. Patient was 82% on RA. This nurse applied nasal cannula on patient and patient went up to 94% on 3L. Patient was reeducated on the importance of wearing her oxygen.
[2023-12-20 07:29] LABS: Hematocrit 46.7 % (37-47); Hemoglobin 15.2 g/dL (12.0-15.0); Mean Corp Hgb Conc 32.5 g/dL (32-36); Mean Corpuscular Volume 95.1 fL (81-99); Mean Platelet Vol. 8.5 fl (6.2-12.0); Platelet Count 349 K/mm3 (150-450); RBC Distribution Width CV 13.4 % (11.6-14.6); RBC Distribution Width SD 46.7 fl (35.1-43.9); Red Blood Count 4.91 M/mm3 (4.2-5.4); White Blood Count 8.6 K/mm3 (4.4-11.0)
[2023-12-20 08:06] LABS: Anion Gap 9 (5-15); BUN 13 mg/dL (7-18); BUN/Creat Ratio 10.5 RATIO (10-20); Chloride 102 mmol/L (98-107); Creatinine, Serum 1.24 mg/dL (0.55-1.02); EST Glomerular Filtration Rate 45 mL/min (>60); Est Glom Filt Rate - Afr Amer 54 mL/min (>60); Estimated Creatinine Clearance 41.56 ml/min; Glucose 99 mg/dL (74-106); Magnesium 1.8 mg/dL (1.6-2.6); Potassium 3.3 mmol/L (3.5-5.1); Sodium Level 137 mmol/L (136-145)
[2023-12-20] MEDS: APIXABAN 5 MG TABLET 10 MG PO (08:47)
[2023-12-20] MEDS: Metoprolol(XL)Succ 50 MG Tablet PO (08:48)
[2023-12-20] MEDS: Furosemide 40 MG/4 ML Vial IV (08:48)
[2023-12-20] MEDS: Cilostazol 50 MG Tablet 100 MG PO (08:48)
--- NOTE | 2023-12-20 12:01 | PCM.DC.SUM ---
Providers Date of Admission: 12/18/23 Date of Discharge: 12/20/23 Primary Care Physician: Dr. Domo Adhikari, DO Consultations 12/18/23 10:55 Consult: Vascular Surgery Routine Consulting Provider: Ernie Graves Reason for Consult: PE with RV strain EMERGENT Consult: No MD Notified: Yes Date Notified: 12/18/23 Time Notified: 09:34 Method of Notification: ED Physician Initiated Reason For Visit: PE/HYPOXIA Diagnosis Discharge Diagnosis (1) Pulmonary emboli: Status: Acute Code(s): I26.99 - Other pulmonary embolism without acute cor pulmonale Qualifiers: Pulmonary embolism type: multiple subsegmental (without acute cor pulmonale) Qualified Code(s): I26.94 - Multiple subsegmental pulmonary emboli without acute cor pulmonale Plan Chest pain secondary to acute pulmonary emboli -CTA of the chest shows a right distal main pulmonary artery embolus with early right heart strain and no other acute findings -Echocardiogram showed an EF of 55% with a normal LV size, D-shaped septum in systole and diastole with pulmonary artery pressures of 100 mmHg -With no RV strain, normal troponin and only mild tachycardia that was intermittent there is no indication for embolectomy per discussion with vascular surgery -Discontinue heparin drip and start Eliquis 10 mg p.o. twice daily day 1 of 7--> will then transition to 5 mg p.o. twice daily indefinitely as this is a recurrent embolic event for her -Vascular surgery is following-appreciate input -Will ensure patient has pulmonary follow-up after discharge Syncope -Secondary to the above -Cardiac enzymes were unremarkable -Monitor on telemetry Acute hypoxic respiratory failure secondary to acute submassive pulmonary emboli - oxygenation is worsened and patient is now on 5 L nasal cannula -Continue supplemental oxygen as needed to keep oxygen sat equal to or greater than 89% -Wean as able -Check ambulatory pulse ox prior to discharge I highly anticipate patient will need supplemental oxygen at the time of discharge -As needed nebulizers with history of tobacco abuse -Lasix 40 mg IV push twice daily with markedly elevated pulmonary pressures Acute hypokalemia -resolved but only 3.6 -With diuresis we will give another 40 mill equivalents today Diarrhea -Etiology is unclear -Check C. difficile and enteric panel -If infectious workup is negative will start as needed loperamide Elevated serum creatinine -Resolved History of pulmonary embolus -patient had a provoked DVT greater than 10 years ago after a hip replacement PAD -Continue home cilostazol CAD essential Hypertension/hyperlipidemia -Previous coronary bypass graft surgery at [facility] in 2016 -Continue home metoprolol -As needed hydralazine available for systolic pressure greater than 160 -Patient has been recommended to be on a statin however has declined Insomnia -Continue home trazodone DVT prophylaxis -Eliquis 10 mg p.o. twice daily CODE STATUS -Full code Medications at Discharge Home Medications trazodone 100 mg tablet 300 mg PO QHS PRN Sleep 02/07/16 cilostazol 100 mg tablet 100 mg PO BID 12/13/20 albuterol sulfate 90 mcg/actuation aerosol inhaler 2 puff inhalation Q4H PRN shortness of breath or wheezing 12/18/23 metoprolol succinate 50 mg tablet,extended release 24 hr 50 mg PO DAILY heart rate 12/18/23 nitroglycerin 0.4 mg sublingual tablet 0.4 mg sublingual PRN PRN chest pain 12/18/23 rosuvastatin 20 mg tablet 20 mg PO QPM cholesterol 12/18/23 apixaban 5 mg tablet (Eliquis) 5 mg PO BID #51 tabs 12/20/23 oxycodone 5 mg tablet 5 mg PO Q8H PRN Pain Score 4-10 5 days #15 tabs 12/20/23 Hospital Course Operations None Procedures 2-D Echocardiogram, EKG and - (Chest x-ray/CT brain/CTA chest/lower extremity Dopplers) Summary of Care Provided Minutes Spent on Discharge: 47 Hospital Course: ISABEL GAITAN, is a 73 F who presented to the emergency department at [facility] on 12/18/2023 with multiple complaints including shortness of breath, syncope, and right-sided chest pain. She evidently had symptoms for about 2 to 3 days now that have progressively getting worse. Her son is present and states he tried to get her to come to the emergency department however she was reluctant. Chest pain was predominantly on the right side of her entire chest and her right shoulder and right neck. She thought maybe it got worse when she moves around however she is a fairly poor historian. She does indicate that some of her pain is pleuritic. She initially denied history of DVT or PE however her son reported that she had a history of PE after hip replacement about 10 years ago. Vital signs on presentation showed temperature of 98.8, heart rate 116, respiratory was 22, blood pressure was 118/91 and pulse ox was 84% on room air. Sats improved to 91% on 2 L nasal cannula. CBC was unremarkable. Coags were unremarkable. Chemistry panel showed mild hypokalemia with a potassium of 3.0 and a mildly elevated serum creatinine 1.16 with a baseline of 0.7-1.0. Her glucose was 139. Initial troponin was 36. A D-dimer was obtained due to her pleuritic chest pain and was found to be 5.32 so she was taken for CT of the chest. CTA demonstrated acute pulmonary embolus in the right distal main pulmonary artery with additional segmental and subsegmental pulmonary emboli throughout all the lobes of bilateral lungs as well as flattening of the interventricular septum of the heart consistent with early right heart strain. BNP was not able to be obtained due to our analyzer not functioning at this time. No other acute disease was identified however she was noted to have fatty liver and a stable left adrenal nodule. She was admitted to the telemetry floor and placed on a heparin drip. Vascular surgery was contacted as this was a fairly decent sized pulmonary embolus and there was concern that she may have RV strain. He evaluated the patient and elected not to pursue any interventional treatment as he felt the risk was greater than the benefit and recommended anticoagulation indefinitely based on the fact that this is a recurrent clot. He also ordered lower extremity Dopplers which were pending at the time of discharge. Echocardiogram showed an EF of 55% with normal LV size and slight RV strain with severe pulmonary hypertension at 100 mmHg related to her PE and probable hypoxemia. Maximally she required 5 L of supplemental oxygen during her hospitalization. We were able to wean her oxygen to 3 L at rest and 4 L with exertion. After being here for about 2 days the patient was very anxious to be discharged. Given the fact that she was able to be transition to Eliquis and stable on lower doses of supplemental oxygen without any hemodynamic instability or abnormalities with her blood pressure or laboratory data we felt she is stable to be discharged home. She will continue Eliquis 10 mg twice daily for the next 5.5 days and then transition to 5 mg daily to follow. A 1 month supply was written for the patient and have asked her to follow-up with her primary care physician within the next week. I also have asked her to follow-up with pulmonary medicine as I do suspect she likely has some baseline COPD, obstructive sleep apnea on top of her newly diagnosed extensive pulmonary emboli. Prescription for her Eliquis was sent to the pharmacy prior to discharge and at ambulatory pulse ox was performed. After reviewing the oxygen testing this patient qualifies for oxygen in the home with home equipment for portability and the patient is mobile in the home in the community. Her oxygen saturation at rest was stable on 3 L and she required 4 L for exertion. She was discharged home in stable condition on 12/20/2023. Of note I do suspect the patient has some mild dementia at baseline as she repetitively asked questions that had been answered previously and acted like we have never talked about it before. Discharge diagnoses: Chest pain Acute pulmonary emboli Syncope secondary to extensive pulmonary emboli Acute hypoxic respiratory failure secondary to acute submassive pulmonary emboli Acute hypokalemia-resolved Diarrhea-resolved Elevated serum creatinine-resolved History of pulmonary emboli PAD CAD Essential hypertension Hyperlipidemia Insomnia Suspected mild cognitive impairment versus early dementia Physical Exam Const alert, oriented x3, no apparent distress and well nourished; Negative for average body habitus or healthy appearing Constitutional Narrative: Obese, disheveled, older, white female, sitting up in bed eating breakfast and watching television, son at bedside, appears comfortable, nontoxic, nursing at bedside, patient does seem to have some cognitive deficits as she asks questions that we have already answered several times General Appearance: cooperative, comfortable, well kempt and well developed Orientation / Consciousness: awake, oriented to person, oriented to place and oriented to time Exam Limitations: no limitations Nutritional Appearance: obese HEENT normocephalic, head/scalp atraumatic, hearing grossly normal bilaterally and moist oral mucous membranes HEENT Narrative: Dentition is poor with dentures in place, Mallampati 3, no thrush Eyes PERRL, EOMs intact bilaterally and conjunctivae normal Eyes Narrative: No scleral icterus Neck no lymphadenopathy and supple Neck Narrative: Trachea midline, no thyroid enlargement Resp normal respiratory effort, no retractions, no use of accessory muscles and clear to auscultation bilaterally Resp Narrative: Diminished but clear Auscultation: Negative for rales, rhonchi or wheezes Cardio regular rate, regular rhythm, S1 normal heart sound, S2 normal heart sound, no murmurs, no rub, no gallops and no clicks GI normal to inspection, nondistended, normoactive bowel sounds, soft to palpation and non-tender GI Narrative: No distention, bowel sounds are slightly hyperactive Extremity no clubbing, cyanosis or edema Extremity Narrative: Pedal pulses are 2+ with no edema Skin no rashes or lesions noted, no wounds, skin turgor normal and no jaundice Neuro oriented x3, CN's II-XII intact bilaterally, moves all extremities and no focal motor deficits Speech: speech normal Psych affect normal Psych Narrative: Eye contact is good, patient appears comfortable, patient seems to have some mild cognitive impairment based on interaction Weight / BMI Weight Weight: 82.4 kg Body Mass Index (BMI) 30.2 ABG / Lab / Microbiology Data 12/20/23 07:00 12/20/23 07:00 Laboratory: Laboratory Results - last 24 hr 12/20/23 07:00: WBC 8.6, RBC 4.91, Hgb 15.2 H, Hct 46.7, MCV 95.1, MCH 31.0, MCHC 32.5, RDW Std Deviation 46.7 H, RDW Coeff of Pelon 13.4, Plt Count 349, MPV 8.5, Sodium 137, Potassium 3.3 L, Chloride 102, Carbon Dioxide 26.0, Anion Gap 9, BUN 13, Creatinine 1.24 H, Estim Creat Clear Calc 41.56, Est GFR (MDRD) Af Amer 54 L, Est GFR (MDRD) Non-Af 45 L, BUN/Creatinine Ratio 10.5, Glucose 99, Calcium 9.0, Magnesium 1.8 Microbiology: Microbiology 12/19/23 09:50 Stool Enteric Bacteriology - Final 12/19/23 09:50 Stool Clostridioides difficile (PCR) - Final 12/18/23 05:57 Mucosa - Nasopharyngeal SARS-CoV-2, Influenza & RSV (PCR) - Final D/C Instructions Discharge Diet: Low fat / Low cholesterol Discharge Activity: Return to Normal Activity (Wear 3 L of oxygen at rest and 4 L exertion) Meaningful Use Info Meaningful Use Meaningful Use Diagnoses (Choose all that apply): VTE Ischemic Stroke Statin Dosing Therapy Reference: STATIN DOSE THERAPY REFERENCE: * Patients > 75 years receive moderate or high dose statin therapy. * Patients 75 years or YOUNGER should receive HIGH intensity statin dose unless contraindicated. You will be required to document reason for non-treatment if statin daily dose does not meet guidelines. HIGH DOSE STATIN THERAPY DAILY Atorvastatin > than or = to 40 mg Rosuvastatin > than or = to 20 mg Amlodipine + Atorvastatin > than or = to 2.5/40 mg Ezetimibe + Simvastatin 10/80 mg Simvastatin 80mg VTE Anticoag overlap given w/in hospital stay or rx'd at ca?: Yes Pt receive overlap for 5 days?: No Reason overlap not ordered, prescribed, or given for 5 days: Procedure Not Indicated Discharge Plan Admission Admit Date/Time: 12/18/23 09:32 Primary Reason for Your Visit: Shortness of breath/chest pain Attending Provider: Pippa Urias Primary Care Provider: Domo Adhikari Consulting Providers: Ernie Graves Instructions Additional Instructions / Restrictions: 1. It is very important you missed no doses of your Eliquis (apixaban) 2. Your Eliquis dosing will be 10 mg (2 tablets) twice daily for 5-1/2 more days and then 5 mg twice daily indefinitely -You should never come off this medication unless instructed to do so by a physician who is familiar with your history 3. Please call the pulmonary office as noted below on Friday to schedule an outpatient follow-up after discharge. It may be sometime before you can get in but is important to follow-up. 4. You must be on oxygen with 3 L during rest and 4 L with exertion until instructed to come off oxygen by a physician. Discharge Orders/Prescriptions Prescriptions: New oxycodone 5 mg Tablet 5 mg PO Q8H PRN (Reason: Pain Score 4-10) 5 Days Qty: 15 0RF Eliquis 5 mg tablet 5 mg PO BID Qty: 51 0RF Rx Instructions: Take 2 tablets twice daily through 12/25/2023 then take 1 tablet twice daily indefinitely to follow Continued trazodone 100 MG tablet 300 mg PO QHS PRN (Reason: Sleep) Patient Comments: pt must cut pills in half. cilostazol 100 mg tablet 100 mg PO BID Patient Comments: take 1 tablet by mouth twice a day metoprolol succinate 50 mg tablet extended release 24 hr 50 mg PO DAILY albuterol sulfate 90 mcg/actuation HFA aerosol inhaler 2 puff INHALATION Q4H PRN (Reason: shortness of breath or wheezing) nitroglycerin 0.4 mg tablet, sublingual 0.4 mg sublingual PRN PRN (Reason: chest pain) rosuvastatin 20 mg tablet 20 mg PO QPM Patient Comments: pt refuses to take per son. Referrals / Follow Up: Adryan Wall DO [Med Staff - Active Staff] - See Referral Note (Call Friday to schedule an appointment to be seen at the first available appointment) Domo Adhikari DO [Primary Care Provider] - Within 1 Week (Call Friday to get an appointment to be seen with the next week) Disposition Disposition (needs filled in before D/C Order can be placed): Home, Self Care Charges/Coding Visit Charges Inpatient E&M: 14826 Disch Hosp >30min
== END 2023-12-20 14:16 | disposition home or self-care (01) | DRG 175 ==
LOC: ED 09:36 → PCU 10:01
PROVIDERS: Emergency Medicine; Admitting Provider Internal Medicine; Emergency Provider Emergency Medicine; PCP Family Medicine; Visit Provider Internal Medicine
DX: I26.94 Multiple subsegmental thrombotic pulmonary emboli without acute cor pulmonale (principal); J96.01 Acute respiratory failure with hypoxia; I10 Essential (primary) hypertension; I73.9 Peripheral vascular disease, unspecified; E87.6 Hypokalemia; I25.10 Atherosclerotic heart disease of native coronary artery without angina pectoris; E78.5 Hyperlipidemia, unspecified; R19.7 Diarrhea, unspecified; E66.9 Obesity, unspecified; G47.00 Insomnia, unspecified; Z79.51 Long term (current) use of inhaled steroids; Z79.899 Other long term (current) drug therapy; Z87.891 Personal history of nicotine dependence; Z86.711 Personal history of pulmonary embolism; Z95.1 Presence of aortocoronary bypass graft; Z68.30 Body mass index [BMI] 30.0-30.9, adult
CPT/HCPCS: 36415; 70450; 71046; 71275; 80048; 80053; 83735; 84100; 84484; 85025; 85027; 85379; 85610; 85730; 87493; 87506; 87631; 93005; 93306; 93970; 94640; 94668; 97161; 97165; 99252; 99285; Q9967; A4216; G0463; J1940; J2405